=== PATIENT | male | born 1940 | race Caucasian/White ===

== ENCOUNTER 2019-08-09 09:47 | Inpatient (IN) | payer MEDICARE, SELFPAY ==
[2019-08-09] VITALS (10 sets, daily range): BP systolic 90–147; BP diastolic 72–104; PULSE 72–112; RESP 16–24; TEMP 36.1–36.6; O2SAT 96–98
--- NOTE | ~2019-08-09 | XR_ITS ---
EXAMINATION: XR chest 2V DATE: 08/10/2019 08:43 INDICATION: Shortness of breath. TECHNIQUE: Frontal and lateral views of the chest were obtained on 3 radiographs. COMPARISON: Chest 2 views 08/09/2019 FINDINGS: A calcified right lung nodule is consistent with old granulomatous disease. There is mild a telectasis at right lung base. No pleural effusion or pneumothorax. Cardiomegaly is noted. IMPRESSION: 1. Mild atelectasis at right lung base. 2. Cardiomegaly. Reviewed, dictated and finalized at location A. AND CAP DRYING ROOM ATTENDANT
--- NOTE | ~2019-08-09 | XR_ITS ---
EXAMINATION: XR chest 2V DATE: 08/09/2019 10:24 INDICATION: Shortness of breath. TECHNIQUE: Frontal and lateral views of the chest were obtained. COMPARISON: Chest single view 06/26/2016, CT abdomen 03/05/2018 FINDINGS: A calcified right lung nodule and calcified right hilar lymph nodes are consistent with old granulomatous disease. There are interstitial opacities in the lower lungs, consistent with mild pul monary edema. There are small pleural effusions. No pneumothorax. Cardiomegaly is noted. IMPRESSION: 1. Mild pulmonary edema. 2. Small pleural effusions. 3. Cardiomegaly. Reviewed, dictated and finalized at location A. S EXPERT
--- NOTE | 2019-08-09 09:51 | ECG_ITS ---
Measurements Intervals [place] Rate: 92 P: [place]: 0 QRS: -66 QRSD: 98 T: 83 QT: 379 QTc: 469 Interpretive Statements ATRIAL FIBRILLATION FREQUENT VENTRICULAR PREMATURE COMPLEXES LEFT AXIS DEVIATION ANTEROSEPTAL INFARCT, AGE INDETERMINATE BORDERLINE ST-T WAVE ABNORMALITY- LATERAL LEADS ABNORMAL ECG Electronically Signed On 08-09-2019 11:52:24 COATING SUPERVISOR by Roldan Corbett D.O.
--- NOTE | 2019-08-09 10:02 | ED.SOB ---
HPI - SOB/Dyspnea General Chief Complaint: Shortness of Breath/Dyspnea Stated Complaint: trouble breathing Time Seen by Provider: 08/09/19 10:02 Source: patient Mode of arrival: ambulatory Limitations: no limitations History of Present Illness MD elicited complaint: shortness of breath Pertinent past history: COPD Onset (ago): week(s) (2-3) Timing: intermittent Severity: moderate Exacerbating factors: lying flat Relieving factors: upright position Known history of: COPD Associated symptoms: orthopnea Treatment prior to arrival: none Related Data Home Medications Medication Instructions Recorded Confirmed apixaban [Eliquis] 5 mg PO BID 08/09/19 08/09/19 carvedilol 12.5 mg PO BID 08/09/19 08/09/19 digoxin 125 mcg PO DAILY 08/09/19 08/09/19 fluticasone propionate [Flonase 2 spray INTRANASAL DAILY 08/09/19 08/09/19 Allergy Relief] lisinopril 5 mg PO DAILY 08/09/19 08/09/19 Allergies Allergy/AdvReac Type Severity Reaction Status Date / Time Penicillins Allergy Unknown Verified 08/09/19 10:13 Review of Systems Constitutional: Constitutional: Denies chills and Denies fever(s) Cardiovascular: Cardiovascular: Reports chest pain and Reports rapid heart rate Respiratory: Respiratory: Denies cough Gastrointestinal: Gastrointestinal: Reports no additional gastrointestinal complaints Genitourinary: Genitourinary: Reports no additional male genitourinary complaints Integumentary/Breasts: Skin/Breast: Denies pruritus, Denies erythema and Denies rash Neurologic: Reports system reviewed and no additional complaints, except as documented Psychiatric: Psychiatric: Reports no additional psychiatric complaints Endocrine: Endocrine: Reports no additional endocrine complaints [facility] Past Medical History Medical History (Updated 08/09/19 @ 15:54 by DALILA Hernandez) Anxiety disorder Atrial fibrillation Congestive heart failure Thrombocytopenia Surgical History Surgical History (Updated 08/09/19 @ 13:18 by Jarocho Hannon MD) History of inguinal hernia repair S/P colonoscopic polypectomy Family History Family History (Updated 08/09/19 @ 14:20 by Janell Catalan RN) Father Unknown family medical history Mother Unknown family medical history Social History Social History (Updated 08/09/19 @ 13:19 by Jarocho Hannon MD) Years smoked: 40 Smoking status: Former smoker Tobacco type: pipe Smoking end date: 06/25/19 Alcohol intake: never Alcohol use details: Occasional Substance use: never Substance use type: does not use Gender identity (if verbalized by the patient): Male Spiritual care concerns: No Exam Const: General: healthy appearing, no acute distress and alert Nutritional Appearance: well nourished and thin Orientation/consciousness: patient oriented x3 HENMT: Head: normal to inspection Eyes: Conjunctivae: conjunctivae normal Pupils: Equal, round and reactive pupils present EOM: EOMs intact bilaterally Neck: Neck: normal visual inspection and no lymphadenopathy Resp: Effort & Inspection: normal respiratory effort Auscultation: clear to auscultation bilaterally Cardio: Rate: tachycardic Rhythm: abnormal rhythm irregularly irregular GI: GI Palp: Yes Soft to palpation and No Tenderness to palpation present (GI) Auscultation: normal bowel sounds Back/Spine/Pelvis: Cervical Spine: cervical ROM normal Thoracic/Lumbar Spine: thoraco-lumbar ROM normal Skin: General skin exam: normal color Rashes: no rashes Neuro: General: patient oriented x3, moves all extremities and no focal motor deficits Speech: normal speech Extrem: General: normal to inspection and no pedal edema Psych: Mental Status: mental status grossly normal Affect: normal affect Attitude: cooperative Thought content: Yes Normal thought content present Course Vital Signs Vital signs: Vital Signs Temperature 36.1 C L 08/09/19 10:00 Pulse Rate 112 H 08/09/19 10:00 Respir
[2019-08-09 10:33] LABS: Basophils Absolute Auto 0.03 K/mm3 (0.00-0.10); Basophils Percent Auto 0.6 % (0.0-1.0); Eosinophils Absolute Auto 0.04 K/mm3 (0.02-0.50); Eosinophils Percent Auto 0.8 % (1.0-6.0); Hematocrit 42.9 % (37.0-46.0); Hemoglobin 15.1 g/dL (12.4-15.3); Immature Granulocyte Absolute 0.02 K/mm3 (0.00-0.00); Immature Granulocyte Percent A 0.4 % (0.0-0.0); Lymphocytes Absolute Auto 1.26 K/mm3 (1.10-4.50); Lymphocytes Percent Auto 26.5 % (18.0-42.0); Mean Corpuscular HGB Conc 35.2 g/dL (32.0-36.0); Mean Corpuscular Hemoglobin 32.8 pg (27.0-31.0); Mean Corpuscular Volume 93.3 fL (78.0-102.0); Mean Platelet Volume 10.5 fl (8.7-11.0); Monocytes Absolute Auto 0.54 K/mm3 (0.10-0.90); Monocytes Percent Auto 11.4 % (2.0-11.0); Neutrophils Absolute Auto 2.9 K/mm3 (1.7-7.2); Neutrophils Percent Auto 60.3 % (50.0-70.0); Platelet Count Result 129 K/mm3 (150-420); Red Cell Distribution Width 15.4 % (11.6-14.4); White Blood Count 4.8 K/mm3 (4.8-10.8)
[2019-08-09 10:50] LABS: BNP 1300 pg/mL (0-100)
[2019-08-09 10:55] LABS: CRP 0.8 mg/dL (0.0-0.9); Digoxin < 0.2 ng/mL (0.9-2.0); Troponin I 0.04 ng/mL (0.00-0.056)
--- NOTE | 2019-08-09 11:00 | PC.NURSE ---
PT CARE IS ASSUMED AT THIS TIME. PT REPORTS BEING COMFORTABLE AT THIS TIME BUT WISHES TO SPEND THE NIGHT. A-FIB FOUND ON MONITOR.
[2019-08-09 11:01] LABS: Alanine Aminotransferase 19 U/L (16-63); Albumin Level 3.8 g/dL (3.4-5.0); Anion Gap 15.6 mmol/L (7-16); Aspartate Amino Transferase 25 U/L (15-37); Bilirubin,Total 2.7 mg/dL (0.00-1.00); Blood Urea Nitrogen 24 mg/dL (7-18); Calcium 9.4 mg/dL (8.5-10.1); Carbon Dioxide 27 mmol/L (21-32); Chloride 103 mmol/L (98-108); Estimated CRCL calculation 42 ml/min; Estimated Glomerular Filt Rate 58; Glucose 119 mg/dL (70-99); Osmolality Calculated 297 mOsm/kg (285-295); Potassium 4.6 mmol/L (3.5-5.1); Sodium 141 mmol/L (136-145); Total Protein 7.1 g/dL (6.4-8.2)
[2019-08-09 11:13] LABS: Alkaline Phosphatase 89 U/L (46-116); Magnesium 1.9 mg/dL (1.8-2.4)
--- NOTE | 2019-08-09 14:22 | PC.NURSE ---
here from er with c/o sob. bnp elevated. claims he feels better but now just wore out since we gave him lasix in er. lungs are slightly diminished but clear. no pedal edema. skin warm and dry. in room 210 and is on tele with a fib and rates of 90-110's. a&o x's 3. call light use explained and impotance of measuring urine.
--- NOTE | 2019-08-09 15:41 | PM.IMHP ---
H&P: HPI History of Present Illness Chief complaint: trouble breathing <DALILA Hernandez - Last Filed: 08/09/19 15:56> Narrative: Vazquez Higgins is a 79 year old male male that presented to the ER today complaining of shortness of breath dyspnea. Patient has a past medical history anxiety disorder, AFib, thrombocytopenia and congestive heart failure . he is being admitted for congestive heart failure patient's vital signs are 147/104, 98, 20, 36.4, 97% air. patient noted that about 2 weeks ago he started to experience shortness of breath and discomfort in his chest per patient it felt like lines was running up and down my chest . He noted that it did not feel like heart attack but more of a discomfort. He also noted that he was fatigue and slept a lot. He did note that he had an occasional. Last night he was unable to sleep and felt more discomfort in his chest and decided to come into the ED. Patient's manager group home is Dr. Herron. I did contact , for any suggestions. while patient was in the ER he had a chest x-ray which indicated mild pulmonary edema with small pleural effusion. His BNP was 1300 he was given Lasix IV push. He continues to have shortness of breath on occasions chest discomfort. Patient denies , CP, palpitation, extremity numbness, lightheadness, dizziness, constipation, diarrhea, or chills or fever. <DALILA Hernandez - Last Filed: 08/09/19 15:56> Review of Systems Constitutional: Constitutional: Reports fatigue, Denies headache(s) and Reports weakness <DALILA Hernandez - Last Filed: 08/09/19 15:56> Cardiovascular: Cardiovascular: Reports palpitations and Reports dyspnea <DALILA Hernandez - Last Filed: 08/09/19 15:56> [facility] Past Medical History Medical History: Medical History (Updated 08/09/19 @ 15:54 by DALILA Hernandez) Anxiety disorder Atrial fibrillation Congestive heart failure Thrombocytopenia <DALILA Hernandez - Last Filed: 08/09/19 15:56> Surgical History Surgical History: Surgical History (Updated 08/09/19 @ 13:18 by Jarocho Hannon MD) History of inguinal hernia repair S/P colonoscopic polypectomy <DALILA Hernandez - Last Filed: 08/09/19 15:56> Family History Family History: Family History (Updated 08/09/19 @ 14:20 by Janell Catalan RN) Father Unknown family medical history Mother Unknown family medical history <DALILA Hernandez - Last Filed: 08/09/19 15:56> Social History Social History: Social History (Updated 08/09/19 @ 13:19 by Jarocho Hannon MD) Years smoked: 40 Smoking status: Former smoker Tobacco type: pipe Smoking end date: 06/25/19 Alcohol intake: never Alcohol use details: Occasional Substance use: never Substance use type: does not use Gender identity (if verbalized by the patient): Male Spiritual care concerns: No <DALILA Hernandez - Last Filed: 08/09/19 15:56> Meds Home Medications and Allergies Home medications: Home Medications Medication Instructions Recorded Confirmed Type apixaban [Eliquis] 5 mg PO BID 08/09/19 08/09/19 History carvedilol 12.5 mg PO BID 08/09/19 08/09/19 History digoxin 125 mcg PO DAILY 08/09/19 08/09/19 History fluticasone propionate [Flonase 2 spray INTRANASAL DAILY 08/09/19 08/09/19 History Allergy Relief] lisinopril 5 mg PO DAILY 08/09/19 08/09/19 History <DALILA Hernandez - Last Filed: 08/09/19 15:56> Allergies/Adverse reactions: Allergies Allergy/AdvReac Type Severity Reaction Status Date / Time Penicillins Allergy Unknown Verified 08/09/19 10:13 <DALILA Hernandez - Last Filed: 08/09/19 15:56> Vital Signs Vital Signs - 24 hr 08/09/19 10:00 08/09/19 10:12 08/09/19 10:41 Temperature 36.1 C L Pulse Rate 112 H 112 H 100 Respiratory Rate 16 16 Blood Pressure 127/83 138/84 Pulse Oximetry 96 97 08/09/19 11:55 08/09/19
[2019-08-09] MEDS: FUROSEMIDE INJ 40 MG/4 ML VIAL IV PUSH (16:50)
[2019-08-09] MEDS: APIXABAN 2.5 MG TABLET 5 MG PO (20:32)
[2019-08-09] MEDS: carvediloL 12.5 MG TABLET PO (20:33)
[2019-08-09] MEDS: DOCUSATE SODIUM 100 MG CAPSULE PO (20:33)
--- NOTE | 2019-08-09 21:37 | PC.NURSE ---
Dr Hannon notifed of 3 runs of V-tach at 21:20 a 9 beat, 8beat, and 10 beat run. No new orders obtained. will continue to monitor.
--- NOTE | 2019-08-09 23:00 | PC.NURSE ---
pt reports he has had 2 bipin horses in left leg. Charge nurse notified
[2019-08-10] VITALS (9 sets, daily range): BP systolic 90–113; BP diastolic 51–84; PULSE 70–92; RESP 16–20; TEMP 36.1–36.7; O2SAT 96–99
[2019-08-10 05:46] LABS: Basophils Absolute Auto 0.02 K/mm3 (0.00-0.10); Basophils Percent Auto 0.4 % (0.0-1.0); Eosinophils Absolute Auto 0.04 K/mm3 (0.02-0.50); Eosinophils Percent Auto 0.8 % (1.0-6.0); Immature Granulocyte Absolute 0.02 K/mm3 (0.00-0.00); Immature Granulocyte Percent A 0.4 % (0.0-0.0); Immature Platelet Fraction Pct 3.2 % (1.0-7.0); Lymphocytes Absolute Auto 1.42 K/mm3 (1.10-4.50); Lymphocytes Percent Auto 29.5 % (18.0-42.0); Mean Corpuscular HGB Conc 35.7 g/dL (32.0-36.0); Mean Corpuscular Hemoglobin 32.3 pg (27.0-31.0); Mean Corpuscular Volume 90.3 fL (78.0-102.0); Mean Platelet Volume 9.9 fl (8.7-11.0); Monocytes Absolute Auto 0.61 K/mm3 (0.10-0.90); Monocytes Percent Auto 12.7 % (2.0-11.0); Neutrophils Absolute Auto 2.7 K/mm3 (1.7-7.2); Neutrophils Percent Auto 56.2 % (50.0-70.0); Platelet Count Result 132 K/mm3 (150-420); Red Blood Count 4.65 M/mm3 (4.70-6.10); Red Cell Distribution Width 14.7 % (11.6-14.4); White Blood Count 4.8 K/mm3 (4.8-10.8)
[2019-08-10 05:59] LABS: Anion Gap 14.3 mmol/L (7-16); Blood Urea Nitrogen 23 mg/dL (7-18); Calcium 9.2 mg/dL (8.5-10.1); Carbon Dioxide 29 mmol/L (21-32); Chloride 100 mmol/L (98-108); Estimated CRCL calculation 39 ml/min; Estimated Glomerular Filt Rate 53; Glucose 108 mg/dL (70-99); Osmolality Calculated 294 mOsm/kg (285-295); Potassium 3.3 mmol/L (3.5-5.1); Sodium 140 mmol/L (136-145)
[2019-08-10 06:09] LABS: BNP 1080 pg/mL (0-100)
--- NOTE | 2019-08-10 08:33 | PC.NURSE ---
Sat up on edge of bed for breakfast, feeling better, denies needs, no SOB this am, no cough noted
[2019-08-10] MEDS: FLUTICASONE PROPIONATE 0.05% NA SPR 16 GM BTL (*BKC) 2 SPRAY NASAL (09:33)
[2019-08-10] MEDS: POTASSIUM CHLORIDE 20 MEQ TABLET 40 MEQ PO (09:35)
[2019-08-10] MEDS: DOCUSATE SODIUM 100 MG CAPSULE PO (09:35)
[2019-08-10] MEDS: DIGOXIN TAB 125 MCG TABLET PO (09:36)
[2019-08-10] MEDS: carvediloL 12.5 MG TABLET PO ×2 (09:36→21:03)
[2019-08-10] MEDS: APIXABAN 2.5 MG TABLET 5 MG PO ×2 (09:36→21:03)
[2019-08-10] MEDS: lisinopriL 5 MG TABLET PO (09:38)
--- NOTE | 2019-08-10 09:40 | PC.NURSE ---
refuses lasix this am
--- NOTE | 2019-08-10 10:30 | PC.NURSE ---
REsting with eyes closed, respirations non labored, telemetry afib, no distress noted
--- NOTE | 2019-08-10 11:30 | PC.NURSE ---
Agreeable to take oral lasix, once daily
[2019-08-10] MEDS: FUROSEMIDE 40 MG TABLET PO (12:07)
[2019-08-10 12:18] LABS: Troponin I 0.08 ng/mL (0.00-0.056)
--- NOTE | 2019-08-10 12:52 | PC.NURSE ---
ate well for lunch, denies sob,
--- NOTE | 2019-08-10 13:21 | PM.IMPN ---
Progress Note: A&P Assessment and Plan (1) Congestive heart failure: Qualifiers: Heart failure chronicity: acute Heart failure type: systolic Qualified Code(s): I50.21 - Acute systolic (congestive) heart failure Code(s): I50.9 - Heart failure, unspecified Status: Acute Assessment and Plan: uncompensated patient with a history of systolic congestive heart failure on admission BNP 1300, currently 10 80 repeat BMP in a.m. change Lasix to 40 mg daily in the a.m.. patient complaining of not being able to sleep due to constant urination spoke with Dr. Herron recommended that the patient discharged with 40 mg of Lasix daily he would like for the patient to call his office to schedule for a follow-up appointment when he is in stock continue weight daily continue oxygen supplement (2) Anxiety disorder: Code(s): F41.9 - Anxiety disorder, unspecified Status: Acute Assessment and Plan: Ativan p.r.n. ordered (3) Atrial fibrillation: Code(s): I48.91 - Unspecified atrial fibrillation Status: Acute Assessment and Plan: patient with controlled AFib, heat rate 92 continue carvedilol, digoxin, Eliquis and lisinopril continue telemetry digoxin not therapeutic possibly due to noncompliance (4) DVT prophylaxis: Code(s): Z29.9 - Encounter for prophylactic measures, unspecified Status: Acute Assessment and Plan: patient on Eliquis for AFib (5) Encounter for monitoring digoxin therapy: Code(s): Z51.81 - Encounter for therapeutic drug level monitoring; Z79.899 - Other group home (current) drug therapy Status: Acute Assessment and Plan: patient digoxin level less than 0.2 informed patient cardiology. possibly due to noncompliance. cardiologists instructed patient to make appointment on discharge. (6) Elevated troponin: Code(s): R79.89 - Other specified abnormal findings of blood chemistry Status: Acute Assessment and Plan: troponin level slightly elevated today will repeat in 6 hours continue telemetry patient does not display any signs of [place] Subjective Date/time seen: 08/10/19 13:21 patient's condition has improved since admission he had no complains of shortness of breath. Patient refused Lasix this morning. Spoke with patient concerning congestive heart failure and treatment plan this condition. Inform him that Lasix will improved his condition. Patient agreed to take a pill form of Lasix once a day in the a.m. troponin was slightly elevated results were 0.08. Will continue telemetry and monitor patient. Patient able to tolerate all meals , and ambulate at baseline. Patient denies SOB, CP, palpitation, extremity numbness, lightheadness, dizziness, constipation, diarrhea, or chills or fever. Review of Systems Constitutional: Constitutional: Reports fatigue, Denies headache(s) and Reports weakness ENT: Denies headache(s) Cardiovascular: Cardiovascular: Reports palpitations and Reports dyspnea Respiratory: Respiratory: Reports dyspnea Neurologic: Denies headache(s) and Reports weakness Endocrine: Endocrine: Reports fatigue and Reports palpitations Exam Narrative: Exam Narrative: General: A well-developed, well-nourished male sitting up in bed no acute distress. HEENT: Normocephalic, atraumatic. PERRL, EOMI. Sclerae anicteric. Oral mucosa moist. Oropharynx clear. Neck: Supple. Respiratory: Lungs are clear to auscultation bilaterally. Cardiovascular: Regular rate and rhythm with S1-S2. Gastrointestinal: Abdomen is soft, nontender, and nondistended with positive bowel sounds. No organomegaly. Skin: Warm, dry, and slightly pale.. No rash or lesions on limited exam. Extremities: No cyanosis, clubbing, or edema. Radial and pedal pulses intact. Neurological: Alert. Cranial nerves 2-12 are grossly intact. No gross focal deficits to casual conversation. Psychiatric: Ple
--- NOTE | 2019-08-10 13:30 | PC.NURSE ---
napping, no needs noted, telemetry afib 70's, no distress noted
--- NOTE | 2019-08-10 16:45 | PC.NURSE ---
up independent in room uses bathroom as needed, not using urinal
[2019-08-10 18:12] LABS: Troponin I 0.05 ng/mL (0.00-0.056)
--- NOTE | 2019-08-10 18:26 | PC.NURSE ---
No needs voiced, resting well, denies sob, telemetry afib
--- NOTE | 2019-08-10 23:28 | PM.EVENT ---
Event Note Event Note Event Note: Patient states that he is feeling much better today and is asking about going home. Alert and oriented x3.Lungs clear to auscultation bilaterally. No respiratory distress. Irregularly irregular but normal rate. Scant pitting edema at the lower extremities which are warm dry and pink There is no evidence of cardiac injury. BNP is improved today. Home on oral Lasix, reinforcing the need to continue to take his digoxin. I have reviewed the chart and examined the patient. I discussed the patient's care with Elyssa Ferrari APN and agree with her assessment and plan.
[2019-08-11] VITALS: BP 113/65; PULSE 95; RESP 20; TEMP 36.7; O2SAT 95
--- NOTE | 2019-08-11 02:27 | PC.NURSE ---
pt given fresh ice water, denies any pain or other needs at this time.
[2019-08-11 04:00] VITALS: BP 99/55; PULSE 76; PULSE 83; RESP 20; TEMP 36.4; O2SAT 98
[2019-08-11 06:16] LABS: Hematocrit 43.1 % (37.0-46.0); Hemoglobin 15.3 g/dL (12.4-15.3); Mean Corpuscular HGB Conc 35.5 g/dL (32.0-36.0); Mean Corpuscular Hemoglobin 32.2 pg (27.0-31.0); Mean Corpuscular Volume 90.7 fL (78.0-102.0); Mean Platelet Volume 10.2 fl (8.7-11.0); Platelet Count Result 130 K/mm3 (150-420); Red Blood Count 4.75 M/mm3 (4.70-6.10); Red Cell Distribution Width 14.6 % (11.6-14.4); White Blood Count 5.1 K/mm3 (4.8-10.8)
[2019-08-11 06:18] LABS: Anion Gap 12.7 mmol/L (7-16); Blood Urea Nitrogen 24 mg/dL (7-18); Calcium 9.2 mg/dL (8.5-10.1); Carbon Dioxide 30 mmol/L (21-32); Chloride 99 mmol/L (98-108); Estimated CRCL calculation 42 ml/min; Estimated Glomerular Filt Rate 58; Glucose 90 mg/dL (70-99); Osmolality Calculated 290 mOsm/kg (285-295); Potassium 3.7 mmol/L (3.5-5.1); Sodium 138 mmol/L (136-145)
[2019-08-11 06:39] LABS: BNP 614 pg/mL (0-100)
[2019-08-11 06:40] LABS: Digoxin < 0.2 ng/mL (0.9-2.0); Troponin I 0.05 ng/mL (0.00-0.056)
[2019-08-11 08:00] VITALS: BP 108/59; PULSE 94; RESP 18; TEMP 36.1; O2SAT 98
--- NOTE | 2019-08-11 09:30 | PC.NURSE ---
AM meds given, denies sob, no pain, telemetry afib
[2019-08-11] MEDS: FLUTICASONE PROPIONATE 0.05% NA SPR 16 GM BTL (*BKC) 2 SPRAY NASAL (09:34)
[2019-08-11 09:35] VITALS: PULSE 84
[2019-08-11] MEDS: DOCUSATE SODIUM 100 MG CAPSULE PO (09:35)
[2019-08-11] MEDS: carvediloL 12.5 MG TABLET PO (09:35)
[2019-08-11 09:36] VITALS: PULSE 84
[2019-08-11] MEDS: FUROSEMIDE 40 MG TABLET PO (09:36)
[2019-08-11] MEDS: DIGOXIN TAB 125 MCG TABLET PO (09:36)
[2019-08-11] MEDS: APIXABAN 2.5 MG TABLET 5 MG PO (09:36)
[2019-08-11] MEDS: POTASSIUM CHLORIDE 20 MEQ TABLET 40 MEQ PO (09:37)
[2019-08-11] MEDS: lisinopriL 5 MG TABLET PO (09:38)
--- NOTE | 2019-08-11 11:30 | PC.NURSE ---
Resting in bed, no distress noted
[2019-08-11 12:00] VITALS: PULSE 88; PULSE 98; RESP 18
--- NOTE | 2019-08-11 13:38 | PM.DS ---
DS: Diagnosis Admitting Diagnosis Admitting Diagnosis: Acute systolic (congestive) heart failure <DALILA Hernandez - Last Filed: 08/11/19 16:26> Discharge Diagnosis (1) Congestive heart failure: Qualifiers: Heart failure chronicity: acute Heart failure type: systolic Qualified Code(s): I50.21 - Acute systolic (congestive) heart failure <DALILA Hernandez - Last Filed: 08/11/19 16:26> Code(s): I50.9 - Heart failure, unspecified <DALILA Hernandez - Last Filed: 08/11/19 16:26> Status: Acute <DALILA Hernandez - Last Filed: 08/11/19 16:26> Assessment and Plan: uncompensated patient with a history of systolic congestive heart failure on admission BNP 1300, on discharge 614. patient discharged with Lasix in follow-up with his cook fish and chips spoke with Dr. Herron recommended that the patient discharged with 40 mg of Lasix daily he would like for the patient to call his office to schedule for a follow-up appointment when he is in stock patient educated on congestive heart failure and the importance of a diuretic <DALILA Hernandez - Last Filed: 08/11/19 16:26> (2) Anxiety disorder: Code(s): F41.9 - Anxiety disorder, unspecified <DALILA Hernandez - Last Filed: 08/11/19 16:26> Status: Acute <DALILA Hernandez - Last Filed: 08/11/19 16:26> Assessment and Plan: stable no Ativan needed this stay <DALILA Hernandez - Last Filed: 08/11/19 16:26> (3) Atrial fibrillation: Code(s): I48.91 - Unspecified atrial fibrillation <DALILA Hernandez - Last Filed: 08/11/19 16:26> Status: Acute <DALILA Hernandez - Last Filed: 08/11/19 16:26> Assessment and Plan: patient with controlled AFib, continue carvedilol, digoxin, Eliquis and lisinopril patient restarted on digoxin digoxin not therapeutic due to the patient discontinuing medication <Lachelle MccabeOrquidea Vega DALILA - Last Filed: 08/11/19 16:26> (4) DVT prophylaxis: Code(s): Z29.9 - Encounter for prophylactic measures, unspecified <Lachelle Ferrari CARPET JACKKristianPramod - Last Filed: 08/11/19 16:26> Status: Acute <Lachelle Ferrari CARPET JACK-C - Last Filed: 08/11/19 16:26> Assessment and Plan: patient on Eliquis for AFib <Lachelle Ferrari CARPET JACKKristianPramod - Last Filed: 08/11/19 16:26> (5) Encounter for monitoring digoxin therapy: Code(s): Z51.81 - Encounter for therapeutic drug level monitoring; Z79.899 - Other dedicated intermodal truck driver (current) drug therapy <Lachelle Ferrari RICKPramod - Last Filed: 08/11/19 16:26> Status: Acute <Lachelle Ferrari DALILA - Last Filed: 08/11/19 16:26> Assessment and Plan: patient digoxin level less than 0.2 informed patient cardiology. due to patient discontinuing medication prescribed new prescription. instructed to continue taking medication until he has an appointment with his cook fish and chips <Lachelle MccabeOrquidea Ferrari CARPET JACK-C - Last Filed: 08/11/19 16:26> (6) Elevated troponin: Code(s): R79.89 - Other specified abnormal findings of blood chemistry <Lachelle MccabeOrquidea Ferrari CARPET JACK-C - Last Filed: 08/11/19 16:26> Status: Acute <Lachelle Ferrari DALILA - Last Filed: 08/11/19 16:26> Assessment and Plan: troponin level slightly elevated , trended down this hospital stay patient does not display any signs of [place] <Lachelle MccabeOrquidea Ferrari CARPET JACKGiselle - Last Filed: 08/11/19 16:26> DS: Summary Hospital Course Hospital Course: admission H&P from 08/09/2018: Vazquez Higgins is a 79 year old male male that presented to the ER today complaining of shortness of breath dyspnea. Patient has a past medical history anxiety disorder, AFib, thrombocytopenia and congestive heart failure . he is being admitted for congestive heart failure patient's vital signs are 147/104, 98, 20, 36.4, 97% air. patient noted that about 2 weeks ago he started to ex
--- NOTE | 2019-08-11 14:08 | PC.NURSE ---
saline lock and telemetry discontinued, tolerated well, up ad ramon in room has to call for ride home, no distress noted
--- NOTE | 2019-08-11 14:53 | PC.NURSE ---
Discharge instructions reviewed with patient, no questions or concerns voiced
--- NOTE | 2019-08-11 15:05 | PC.NURSE ---
Discharge via wheel chair, discharge instructions and personal items sent with patient, no questions or concerns
--- NOTE | 2019-08-12 07:37 | P.PNCROSS_ITS ---
Event Note Event Note Event Note: Note written for encounter on 08/11/2019 For this patient encounter, I reviewed vinicio Ferrari BITUMINOUS PAVING MACHINE OPERATOR's documentation, treatment plan, and medical decision making; and I had [id number] time with this patient. Bibasilar rales on exam. Pt encouraged to be complaint with taking lasix.
--- NOTE | 2019-08-12 07:37 | PM.EVENT ---
Event Note Event Note Event Note: Note written for encounter on 08/11/2019 For this patient encounter, I reviewed vinicio Ferrari TIPPLE REPAIRER's documentation, treatment plan, and medical decision making; and I had [id number] time with this patient. Bibasilar rales on exam. Pt encouraged to be complaint with taking lasix.
--- NOTE | 2019-08-14 14:31 | PC.NURSE ---
Discharge call back unable to reach patient.
== END 2019-08-11 15:05 | disposition home or self-care (01) | DRG 292 ==
LOC: CHSED 12:32 → CHS2ND 13:21
PROVIDERS: Nurse Practitioner; Admitting Provider Emergency Medicine; Emergency Provider Emergency Medicine; PCP Family Medicine; Visit Provider Emergency Medicine
DX: I50.23 Acute on chronic systolic (congestive) heart failure (principal); I48.20 Chronic atrial fibrillation, unspecified; J44.9 Chronic obstructive pulmonary disease, unspecified; D69.6 Thrombocytopenia, unspecified; F41.9 Anxiety disorder, unspecified; Z79.01 Long term (current) use of anticoagulants
CPT/HCPCS: 36415; 71046; 80048; 80053; 80162; 83735; 83880; 84484; 85025; 85027; 85055; 86140; 93005; 99284; 99285; A9270; J1940

== ENCOUNTER 2019-08-22 11:59 | Outpatient (CLI) | payer MEDICARE, SELFPAY | END 2019-08-22 12:00 | disposition home or self-care (01) | LOC: CHSIMG 12:01 | PROVIDERS: PCP Family Medicine; Visit Provider Specialist | DX: I42.9 Cardiomyopathy, unspecified (principal); Q25.49 Other congenital malformations of aorta | CPT/HCPCS: 93306 ==

== ENCOUNTER 2019-08-30 15:56 | Outpatient (CLI) | payer MEDICARE, SELFPAY ==
--- NOTE | ~2019-08-30 | XR_ITS ---
EXAMINATION: XR chest 2V DATE: 08/30/2019 16:14 INDICATION: One week of shortness of breath TECHNIQUE: PA and lateral views of the chest were obtained. COMPARISON: Chest radiograph dated 08/10/2019 FINDINGS: Upper expansion of the lungs with flattening of the diaphragm suggestive but not diagnostic of COPD. Linear opacities at the bilateral lower lung zones consistent with atelectasis/scarring. Calcified no dule at the right costophrenic angle consistent with old granulomatous disease. New opacities at the posterior lung bases which could represent atelectasis and/or pneumonia. There is also new blunting a t the posterior sulci consistent with small bilateral pleural effusions. Cardiomegaly. Coronary arter y stenting. Mild thoracic spondylosis. IMPRESSION: 1. Tiny bilateral pleural effusions with posterior basilar opacities which could represent atelectasi s and/or pneumonia. 2. Cardiomegaly. 2. Hyperexpansion of the lungs suggestive but not diagnostic of COPD. Reviewed, dictated and finalized at location A. IMPRESSION: 1. Tiny bilateral pleural effusions with posterior basilar opacities which coul d represent atelectasis and/or pneumonia. 2. Cardiomegaly. 2. Hyperexpansion of the lungs suggestive but not diagnostic of COPD.
== END 2019-08-30 15:57 | disposition home or self-care (01) ==
LOC: CHSIMG 15:58
PROVIDERS: PCP Family Medicine; Visit Provider Family Medicine
DX: R06.00 Dyspnea, unspecified (principal)
CPT/HCPCS: 71046

== ENCOUNTER 2019-09-03 21:00 | Observation (INO) | payer MEDICARE, SELFPAY ==
--- NOTE | ~2019-09-03 | CT_ITS ---
EXAMINATION: CT brain wo con DATE: 09/03/2019 23:31 INDICATION: Confusion. TECHNIQUE: Computed tomography (CT) of the head was performed without intravenous contrast. The mA wa s adjusted according to patient size. Iterative reconstruction technique was employed. The dose-lengt h product was 605.33 mGy-cm. COMPARISON: None FINDINGS: There are scattered areas of low attenuation in the cerebral white matter, which is within normal limits for the patient's age. There is an old lacunar infarct in the left basal ganglia. There is no intracranial hemorrhage, acute infarction, or abnormal intracranial mass lesion. The ventricle s are normal in size. The orbits are normal. There is mild mucosal thickening in the ethmoid sinuses. The mastoid air cells are normal. IMPRESSION: 1. Old lacunar infarct in the left basal ganglia. Reviewed, dictated and finalized at location A.
--- NOTE | ~2019-09-03 | XR_ITS ---
EXAMINATION: XR chest 1V portable DATE: 09/03/2019 22:32 INDICATION: Confusion. TECHNIQUE: A single frontal view of the chest was obtained. COMPARISON: Chest 2 views 08/30/2019, CT abdomen and pelvis 03/05/2018 FINDINGS: The lungs are hyperexpanded, consistent with chronic obstructive pulmonary disease. Calcifi ed pulmonary nodules are consistent with old granulomatous disease. No pleural effusion or pneumothor ax. Cardiomegaly is noted. A skin fold overlies right chest. IMPRESSION: 1. Hyperexpanded lungs, consistent with chronic obstructive pulmonary disease. 2. Cardiomegaly. Reviewed, dictated and finalized at location A.
[2019-09-03 21:17] VITALS: BP 134/76; PULSE 114; RESP 18; TEMP 36.1; O2SAT 97
--- NOTE | 2019-09-03 22:16 | ECG_ITS ---
Measurements Intervals [place] Rate: 86 P: [place]: 0 QRS: -70 QRSD: 96 T: 95 QT: 366 QTc: 440 Interpretive Statements ATRIAL FIBRILLATION LEFT AXIS DEVIATION VOLTAGE CRITERIA FOR LVH ANTEROSEPTAL INFARCT, AGE INDETERMINATE BORDERLINE ST-T WAVE ABNORMALITY- LATERAL LEADS BASELINE WANDER- V2-V3 ABNORMAL ECG Electronically Signed On 09-04-2019 7:14:08 CDT by Roldan Corbett D.O.
--- NOTE | 2019-09-03 22:19 | ED.GENADULT ---
HPI - General Adult General Chief complaint: Altered Mental Status Stated complaint: confused Source: patient Mode of arrival: ambulatory Limitations: no limitations History of Present Illness HPI narrative: 79 y.o. with RICH, a.fib, thrombocytopenia, and CHF c/o one week of not hitting on all cylinders...not on track...disilllusioned . Pt feels like he's not thinking straight. Feeling this way, he stayed in bed all day today. He doesn't feel like he's having trouble remembering things. Nothing seems to make it worse. He's not sure if it has gotten worse over time or not. He hasn't felt this way before. No hx of falls or head contusion. Pt has had minor dyspnea over the week. He was d.c. from [facility] 08/10 with acute systolic heart failure. He denies headache, visual disturbances, lightheadedness, vertigo, trouble with speech, weakness, numbness, trouble with balance. He has had no change of appetite. He doesn't feel his energy is substantially reduced. No fever. Related Data Home Medications Medication Instructions Recorded Confirmed Eliquis 5 mg PO BID 08/09/19 09/03/19 carvedilol 12.5 mg PO BID 08/09/19 09/03/19 fluticasone propionate [Flonase 2 spray INTRANASAL DAILY 08/09/19 09/03/19 Allergy Relief] lisinopril 5 mg PO DAILY 08/09/19 09/03/19 Allergies Allergy/AdvReac Type Severity Reaction Status Date / Time Penicillins Allergy Unknown Verified 08/09/19 10:13 Review of Systems Constitutional: Constitutional: Reports no additional constitutional complaints Eyes: Eyes: Reports no additional eye complaints ENT: Denies dysphagia, Denies nasal congestion and Denies sore throat Cardiovascular: Cardiovascular: Denies chest pain and Denies radiating jaw, neck or arm pain Comments: No polyuria or orthopnea No pedal edema Respiratory: Respiratory: Reports no additional respiratory complaints, Denies cough and Denies wheezing Gastrointestinal: Gastrointestinal: Denies abdominal pain, Denies diarrhea, Denies nausea and Denies vomiting Genitourinary: Genitourinary: Denies dysuria Musculoskeletal: Musculoskeletal: Denies myalgias and Denies arthralgias Integumentary/Breasts: Skin/Breast: Denies rash Psychiatric: Psychiatric: Denies anxiety and Denies depression Endocrine: Endocrine: Denies polyuria Hematologic/Lymphatic: Hematologic/Lymphatic: Denies easy bleeding PMFSH Past Medical History Medical History Anxiety disorder Atrial fibrillation Congestive heart failure Thrombocytopenia Surgical History Surgical History History of inguinal hernia repair S/P colonoscopic polypectomy Family History Family History (Updated 09/04/19 @ 00:29 by Jose Suresh MD) Father Alzheimer disease Mother Unknown family medical history Social History Social History Years smoked: 40 Smoking status: Current every day smoker Tobacco type: pipe Smokeless tobacco user: chewing tobacco Second hand tobacco smoke exposure: Yes Smoking end date: 06/25/19 Alcohol intake: never Substance use: never Substance use type: does not use Gender identity (if verbalized by the patient): Male Spiritual care concerns: No Agree to blood products: Yes Exam Const: General: no acute distress and alert Orientation/consciousness: patient oriented x3 Limitations: No physical limitations HENMT: Head: normal to inspection and no hematomas Face and sinus: no sinus tenderness Mouth: Yes moist mucous membranes Eyes: Conjunctivae: conjunctivae normal Neck: Neck: no lymphadenopathy Resp: Effort & Inspection: not labored and no use of accessory muscles Auscultation: clear to auscultation bilaterally, no rales and no wheezes Cardio: Jugular venous distension: JVD elevated (30 degrees) Rhythm: abnormal rhythm irregularly irregular Heart sounds: Murmur
[2019-09-03 22:39] LABS: Hematocrit 41.1 % (37.0-46.0); Hemoglobin 14.3 g/dL (12.4-15.3); Immature Platelet Fraction Pct 2.6 % (1.0-7.0); Mean Corpuscular HGB Conc 34.8 g/dL (32.0-36.0); Mean Corpuscular Hemoglobin 32.6 pg (27.0-31.0); Mean Corpuscular Volume 93.6 fL (78.0-102.0); Mean Platelet Volume 9.7 fl (8.7-11.0); Platelet Count Result 140 K/mm3 (150-420); Red Blood Count 4.39 M/mm3 (4.70-6.10); Red Cell Distribution Width 15.3 % (11.6-14.4)
[2019-09-03 23:03] LABS: Add Urine Microscopic? YES; Appearance Urine Clear (Clear); Bilirubin Urine 1+ (Negative); Blood Urine Negative (Negative); Color Urine Yellow (Yellow); Glucose Urine UA Negative (Negative); Ketones Urine Negative (Negative); Leukocyte Esterase Ur Negative (Negative); Nitrate Urine Negative (Negative); Protein Urine 2+ (Negative); Specific Grav Ur >= 1.030 (1.010-1.020); pH Urine 5.5 (5.0-8.0)
[2019-09-03 23:04] LABS: Alanine Aminotransferase 29 U/L (16-63); Albumin Level 3.5 g/dL (3.4-5.0); Alkaline Phosphatase 90 U/L (46-116); Anion Gap 13.7 mmol/L (7-16); Aspartate Amino Transferase 35 U/L (15-37); Bilirubin,Total 1.5 mg/dL (0.00-1.00); Blood Urea Nitrogen 24 mg/dL (7-18); Calcium 8.9 mg/dL (8.5-10.1); Carbon Dioxide 28 mmol/L (21-32); Chloride 104 mmol/L (98-108); Estimated CRCL calculation 35 ml/min; Estimated Glomerular Filt Rate 51; Glucose 70 mg/dL (70-99); Osmolality Calculated 296 mOsm/kg (285-295); Potassium 3.7 mmol/L (3.5-5.1); Sodium 142 mmol/L (136-145); Total Protein 6.5 g/dL (6.4-8.2)
[2019-09-03 23:05] VITALS: BP 127/73; PULSE 78; RESP 18; O2SAT 96
[2019-09-03 23:05] LABS: Magnesium 1.8 mg/dL (1.8-2.4); Troponin I 0.05 ng/mL (0.00-0.056)
--- NOTE | 2019-09-03 23:06 | PC.NURSE ---
report to quinn quintero
[2019-09-03 23:22] LABS: RBC Urine 0-2 /hpf (0-2); Squamous Epithelial Cell Urine None seen /hpf (Few); WBC Urine 0-3 /hpf (0-3)
[2019-09-03 23:23] LABS: Bacteria Urine 1+ /hpf; Mucus Urine Few /lpf; Starch Ur Present /hpf
[2019-09-03 23:31] LABS: Digoxin 0.8 ng/mL (0.9-2.0)
[2019-09-03 23:36] VITALS: BP 114/78; PULSE 85; RESP 18
[2019-09-04] VITALS (9 sets, daily range): BP systolic 111–130; BP diastolic 56–74; PULSE 75–92; RESP 18–20; TEMP 36.3–36.9; O2SAT 96–98; BMI 18.2
--- NOTE | 2019-09-04 00:46 | PC.NURSE ---
ERP speaking c Dr. Robert, pts. FMD to give update on labs and reports. Consult and POC devised for 23 hr. obs. and then f/u care.
--- NOTE | 2019-09-04 00:54 | PC.NURSE ---
ERP discussed POC c pt. and pt is agreeable to staying for obs.
[2019-09-04 01:23] LABS: D Dimer 0.58 mg/L (0.19-0.50)
[2019-09-04 01:32] LABS: BNP 1450 pg/mL (0-100)
--- NOTE | 2019-09-04 01:45 | ADMGEN ---
This patient, Vazquez Higgins, was admitted to 2nd Floor Room 226-2. Patient oriented to hospital policies and general routines including ID bracelet, bed and alarms, visiting hours, pain management, procedures, bathroom and other care routines, personal items, smoking policy, room service/diet, and visiting hours. Information on how to activate the Rapid Response Team has been discussed. Patient encouraged to report perceived risks to care and to ask questions if they do not understand what they are told or what they should do.
--- NOTE | 2019-09-04 02:05 | PC.NURSE ---
pt given sandwich and cottage cheese, denies any chest pain, call light and belongings within reach
[2019-09-04] MEDS: FUROSEMIDE INJ 40 MG/4 ML VIAL 20 MG IV PUSH (02:30)
[2019-09-04] MEDS: SODIUM CHLORIDE 0.9% IV 1,000 ML 100 ML IV CONT (02:30)
--- NOTE | 2019-09-04 03:30 | PC.NURSE ---
pt sleeping, no evidence of distress noted, iv fluids infusing per order
--- NOTE | 2019-09-04 04:30 | ECG_ITS ---
Measurements Intervals [place] Rate: 65 P: ND: 0 QRS: 223 QRSD: 104 T: 0 QT: 414 QTc: 431 Interpretive Statements ATRIAL FIBRILLATION CONSIDER LIMB LEAD REVERSAL VOLTAGE CRITERIA FOR LVH CANNOT RULE OUT SEPTAL INFARCT, AGE INDETERMINATE ST-T WAVE ABNORMALITY IN ANTEROLATERAL LEADS- CONSIDER ISCHEMIA BASELINE WANDER- V4-V6 ABNORMAL ECG Electronically Signed On 09-04-2019 11:00:38 CDT by Roldan Corbett D.O.
--- NOTE | 2019-09-04 04:35 | PC.NURSE ---
EKG performed, lab at bedside, pt denies any chest pain
[2019-09-04 05:14] LABS: Troponin I 0.05 ng/mL (0.00-0.056)
--- NOTE | 2019-09-04 05:19 | PC.NURSE ---
pt sleeping, no evidence of distress noted
--- NOTE | 2019-09-04 06:20 | PC.NURSE ---
pt sleeping, no evidence of distress noted at this time
--- NOTE | 2019-09-04 10:30 | ECG_ITS ---
Measurements Intervals [place] Rate: 81 P: NC: 0 QRS: -71 QRSD: 105 T: 215 QT: 416 QTc: 484 Interpretive Statements ATRIAL FIBRILLATION LEFT AXIS DEVIATION DELAYED PRECORDIAL R/S TRANSITION VOLTAGE CRITERIA FOR LVH ST-T WAVE ABNORMALITY IN ANTEROLATERAL LEADS- CONSIDER ISCHEMIA BASELINE ARTIFACT- I, AVL, V3 ABNORMAL ECG Electronically Signed On 09-04-2019 11:00:43 CDT by Roldan Corbett D.O.
[2019-09-04 10:42] LABS: D Dimer 0.61 mg/L (0.19-0.50)
[2019-09-04] MEDS: FLUTICASONE PROPIONATE 0.05% NA SPR 16 GM BTL (*BKC) 2 SPRAY NASAL (10:42)
[2019-09-04] MEDS: APIXABAN 2.5 MG TABLET 5 MG PO (10:43)
[2019-09-04] MEDS: lisinopriL 5 MG TABLET PO (10:43)
[2019-09-04] MEDS: POTASSIUM CHLORIDE 20 MEQ TABLET 40 MEQ PO (10:43)
[2019-09-04] MEDS: carvediloL 12.5 MG TABLET PO (10:43)
[2019-09-04] MEDS: DIGOXIN TAB 125 MCG TABLET PO (10:44)
[2019-09-04] MEDS: FUROSEMIDE 40 MG TABLET PO (10:44)
[2019-09-04 10:46] LABS: Troponin I 0.06 ng/mL (0.00-0.056)
[2019-09-04 10:49] LABS: BNP 1250 pg/mL (0-100)
[2019-09-04 11:21] LABS: Hematocrit 37.2 % (37.0-46.0); Hemoglobin 12.9 g/dL (12.4-15.3); Mean Corpuscular HGB Conc 34.7 g/dL (32.0-36.0); Mean Corpuscular Hemoglobin 32.7 pg (27.0-31.0); Mean Corpuscular Volume 94.2 fL (78.0-102.0); Mean Platelet Volume 10.4 fl (8.7-11.0); Platelet Count Result 127 K/mm3 (150-420); Red Blood Count 3.95 M/mm3 (4.70-6.10); Red Cell Distribution Width 15.5 % (11.6-14.4); White Blood Count 5.4 K/mm3 (4.8-10.8)
[2019-09-04 11:37] LABS: Alanine Aminotransferase 26 U/L (16-63); Albumin Level 3.1 g/dL (3.4-5.0); Alkaline Phosphatase 80 U/L (46-116); Anion Gap 10.5 mmol/L (7-16); Aspartate Amino Transferase 31 U/L (15-37); Bilirubin,Total 1.7 mg/dL (0.00-1.00); Blood Urea Nitrogen 25 mg/dL (7-18); Calcium 8.6 mg/dL (8.5-10.1); Carbon Dioxide 32 mmol/L (21-32); Chloride 103 mmol/L (98-108); Estimated CRCL calculation 35 ml/min; Estimated Glomerular Filt Rate 52; Glucose 84 mg/dL (70-99); Osmolality Calculated 297 mOsm/kg (285-295); Potassium 3.5 mmol/L (3.5-5.1); Sodium 142 mmol/L (136-145); Total Protein 5.8 g/dL (6.4-8.2)
--- NOTE | 2019-09-04 12:35 | PC.NURSE ---
Patient very anxious to go home. Nurse explained to patient about troponin levels and why he has not been discharged yet. Patient states he cant wait much longer, states he is going to leave whether they say he can or not. Nurse practicioner notified, ANABEL Pop in room to speak with patient.
--- NOTE | 2019-09-04 13:38 | PM.IMHP ---
H&P: HPI History of Present Illness Chief complaint: confused Narrative: Vazquez Higgins is a 79 year old male that arrived yesterday afternoon to the ED because he was concerned due to his acute shortness of breath. He is a 79 y.o. with PMH of disorder of bilirubin metabolism, retrograde amnesia, CAD, hypothyroidism, generalized anxiety, dyspnea, RICH, Atrial Fibrillation, thrombocytopenia, medication non-compliance, and CHF. He was c/o one week of feeling run down and tired, not hitting on all cylinders...not on track...disilllusioned . Per ED note, it was like he's not thinking straight. Feeling this way, he stayed in bed all day today. He doesn't feel like he's having trouble remembering things. Nothing seems to make it worse. He's not sure if it has gotten worse over time or not. He hasn't felt this way before. No hx of falls or head contusion. Pt has had minor dyspnea over the week. He was d.c. from [facility] 08/10 with acute systolic heart failure. In ED, he denies headache, visual disturbances, lightheadedness, vertigo, trouble with speech, weakness, numbness, trouble with balance. He has had no change of appetite. He doesn't feel his energy is substantially reduced. Pt. with vague symptoms of not feeling right, trouble focusing and some recent increase in dyspnea. EKG changes noted at ED admission, kept overnight for serial Troponin levels to rule out MT. He was given IV Lasix yesterday evening. Emergency Course by Dr. Suresh: Dr Robert faxed over records to ED physician from 08/29 with feeling tired and run down. Dr. Suresh spoke with Dr. Matthews. Pt has a hx of retrograde amnesia. Dr. Matthews related hx of poor compliance with meds and follow up appointments. Pt had previously voiced resistance to taking Lasix because of polyuria. TODAY, Vazquez told me that he could not remember what made him come into the emergency room yesterday. Then during the later conversation today he told me the only reason I came in to the emergency room was because I felt slightly short of breath . he told me that he has been laying in bed all day except for the 3 times he takes his dog out for a walk. His neighbors provides him with food on a routine basis. He currently denies chest pain or pressure or palpitations, denies shoulder pain or arm numbness or tingling, denies shortness of breath or dyspnea, denies headache, denies pain in legs or calves, denies warmth or tenderness in any extremity , denies chest pain or cough with deep or sudden inspiration, and denies chills or fever when he was at home prior to admission. Ordered PT OT to see patient specifically for OT to do a mini-mental exam today, which showed a scoring of 26/30 as no cognitive impairment. He had a head CT at admission that did not show any acute abnormalities, and old lacuner infarct in the left basal ganglia. His admission CXR showed lungs are hyperexpanded, consistent with chronic obstructive pulmonary disease. Calcified pulmonary nodules are consistent with old granulomatous disease. No pleural effusion or pneumothorax. Cardiomegaly is noted. His D-dimer levels have remained mildly elevated (0.58, 0.61) but stable and he denies all chest pain and shortness of breath today. His troponin levels also remain normal x2 with very mildly elevated levels at 0.06 x 2. His 3 EKGs all show chronic Afib with possible LV hypertrophy, ST-T wave abormalities in anterolateral leads. He will need to Follow up with his Stallion Keeper Dr. Herron after discharge for possible outpatient further workup. Elevated Creatinine so 100ml/hr of IVFs were started at admission. But his BNP was elevated at 1450, compared to past BNP of 615 on August 10. Patient not remembering to take his medications or refusing to take the medications due to increased urination. Spoke with Radiology department a couple of times regarding missing ECHO report from August 21. Dig level low. UA clear. His TSH is elevated at 6.90, started on low dose Levothyrox
--- NOTE | 2019-09-04 14:30 | PC.NURSE ---
Patient sitting up in chair resting. Patient is to be discharge home. IV site removed, tip intact. Dressing applied to site. Patient denies any needs at this time. States he is anxious to leave.
[2019-09-04 14:33] LABS: Troponin I 0.06 ng/mL (0.00-0.056)
--- NOTE | 2019-09-04 15:43 | PM.DS ---
DS: Diagnosis Discharge Diagnosis (1) Congestive heart failure: Qualifiers: Heart failure chronicity: acute Heart failure type: systolic Qualified Code(s): I50.21 - Acute systolic (congestive) heart failure Code(s): I50.9 - Heart failure, unspecified Status: Acute Assessment and Plan: Acute on Chronic CHF exacerbation at admission. may explain EKG changes (including Twave inversion) T wave inversion with ST changes and evident hypertrophy in recent EKGs- faxed the 3 EKGs and past EKG to Ferris Wheel Operator Dr. Herron for him to follow up with the patient soon on an outpatient basis. Differential Diagnosis: Hyponatremia (sodium 138-142) rulled out, hypocalcemia (8.6 -9.2) ruled out, infections such as UTI or pneumonia (CXR clear, lung auscultation clear, UA nitrate -, 0-3 WBC) ruled out, hypothyroidism (TSH 6.9 started on low dose levothyroxine) , pleurisy (CXR reviewed), Anxiety (appears calm and pleasant but is impatient), GERD (denies acid reflux, but should F/U with PCP and/or Ferris Wheel Operator) . (2) DVT prophylaxis: Code(s): Z29.9 - Encounter for prophylactic measures, unspecified Status: Acute Assessment and Plan: continued home daily dosing of Eliquis (3) Attention and concentration deficit: Code(s): R41.840 - Attention and concentration deficit Status: Acute Assessment and Plan: Treating thyroid deficit. Will need to f/u with PCP for further work up, possible Vitamin D, B6 and B12 levels, Cortisol, etc. Ruling out Differential Diagnoses: Hyponatremia (sodium 138-142) ruled out, hypocalcemia (8.6 -9.2) ruled out, infections such as UTI or pneumonia (CXR clear, lung auscultation clear, UA nitrate -, 0-3 WBC) ruled out, hypothyroidism (TSH 6.9 started on low dose levothyroxine) , intracranial bleed (on Eliquis) or mass (ruled out by head CT not showing acute concern), encephalopathy (WBC wnl, neuro status wnl, Mini-mental exam 25/30 with no cognitive impairment noted) may benefit from outpatient [employer] program here at [facility]. (4) Atypical chest pain: Code(s): R07.89 - Other chest pain Status: Acute Assessment and Plan: Acute on Chronic CHF exacerbation at admission. RESOLVED today per patient report, not requiring Nitro or pain medications. may explain EKG changes (including Twave inversion) T wave inversion with ST changes and evident hypertrophy in recent EKGs- faxed the 3 EKGs and past EKG to Ferris Wheel Operator Dr. Herron for him to follow up with the patient soon on an outpatient basis. Differential Diagnosis: Hyponatremia (sodium 138-142) rulled out, hypocalcemia (8.6 -9.2) ruled out, infections such as UTI or pneumonia (CXR clear, lung auscultation clear, UA nitrate -, 0-3 WBC) ruled out, hypothyroidism (TSH 6.9 started on low dose levothyroxine) , pleurisy (CXR reviewed, no concerning fluid or scarring at this time), Anxiety (appears calm and pleasant but is impatient and demanding, may need to start anti-depressant/anti-anxiety med such as Lexapro and can discuss with PCP at follow up visit), GERD (denies acid reflux, but should F/U with PCP and/or Ferris Wheel Operator) . (5) Hypothyroidism: Code(s): E03.9 - Hypothyroidism, unspecified Status: Acute Assessment and Plan: Thyroid Function was slightly abnormal (TSH 6.9), started on low dose Levothyroxine. Follow up with Primary Care Physician for further Thyroid medication and labwork followup. DS: Summary Time Spent with Patient Time attestation: Total time spent providing and/or coordinating discharge services: >60 min Exam Const: General: comfortable, no acute distress, alert and confusion; No in distress or uncomfortable Orientation/consciousness: patient oriented x3 and confusion Limitations: No physical limitations HENMT: Head: normal to inspection and no hematomas General nose exam: Normal nares present Face and sin
--- NOTE | 2019-09-04 19:35 | PM.EVENT ---
Event Note Event Note Event Note: Patient states that he feels much better today. Denies chest pain at the time of exam. alert and oriented, no acute distress. Mucous membranes moist. Lungs clear to auscultation bilaterally. Regular rate and rhythm without murmur rub or gallop. Distal pulses are full and symmetric. Extremities are warm and dry. No significant change in his troponin. Follow-up with his cigar bander hand will be essential. I have examined the patient and reviewed the chart. I discussed the patient's care with A Eros MAZA and agree with her assessment and plan.
== END 2019-09-04 15:40 | disposition home or self-care (01) ==
LOC: CHSED 21:06 → CHS2ND 09-04 01:13
PROVIDERS: Nurse Practitioner; Admitting Provider Family Medicine; Emergency Provider Family Medicine; PCP Family Medicine; Visit Provider Family Medicine
DX: I50.23 Acute on chronic systolic (congestive) heart failure (principal); R41.840 Attention and concentration deficit; E03.9 Hypothyroidism, unspecified; F41.9 Anxiety disorder, unspecified; I48.20 Chronic atrial fibrillation, unspecified; D69.6 Thrombocytopenia, unspecified; R94.31 Abnormal electrocardiogram [ECG] [EKG]; I25.10 Atherosclerotic heart disease of native coronary artery without angina pectoris; F17.290 Nicotine dependence, other tobacco product, uncomplicated
CPT/HCPCS: 36415; 70450; 71045; 80053; 80162; 81001; 83735; 83880; 84439; 84443; 84484; 85027; 85055; 85380; 93005; 96374; 97161; 97165; 99285; A9270; G0378; J1940; J7030

== ENCOUNTER 2019-11-21 11:25 | Outpatient (CLI) | payer MEDICARE, SELFPAY ==
--- NOTE | ~2019-11-21 | XR_ITS ---
EXAMINATION: XR finger 2nd RT min 2V DATE: 11/21/2019 11:47 INDICATION: Right hand second digit pain. TECHNIQUE: 4 views of right hand second digit were obtained. COMPARISON: None. FINDINGS: Bone alignment is normal. No fracture. There is mild osteoarthritis of second proximal and distal interphalangeal joints. IMPRESSION: 1. Polyarticular osteoarthritis. Reviewed, dictated and finalized at location A.
--- NOTE | ~2019-11-21 | XR_ITS ---
EXAMINATION: XR chest 2V 11/21/2019 11:47 INDICATION: Smoker's cough PROCEDURE: 2 view chest COMPARISON: Comparison to multiple prior studies sequentially, with oldest reviewed study dated 08/09. FINDINGS: The lungs are clear. The lungs are hyperinflated which is consistent with, but not diagnost ic of chronic obstructive pulmonary disease. There is coronary atherosclerosis. The cardiomediastinal silhouette is enlarged. There are no pleural effusions. There is no pneumothorax suspected. IMPRESSION: 1: NO ACUTE CARDIOPULMONARY DISEASE. Reviewed, dictated and finalized at location A.
== END 2019-11-21 11:26 | disposition home or self-care (01) ==
LOC: CHSIMG 11:27
PROVIDERS: PCP Family Medicine; Visit Provider Family Medicine
DX: R05 Cough (principal); M79.644 Pain in right finger(s)
CPT/HCPCS: 71046; 73140

== ENCOUNTER 2020-04-15 12:17 | Outpatient (NON) | payer MEDICARE, SELFPAY ==
[2020-04-15 12:50] LABS: Basophils Absolute Auto 0.03 K/mm3 (0.00-0.10); Basophils Percent Auto 0.6 % (0.0-1.0); Eosinophils Absolute Auto 0.06 K/mm3 (0.02-0.50); Eosinophils Percent Auto 1.3 % (1.0-6.0); Hematocrit 40.8 % (37.0-46.0); Hemoglobin 14.2 g/dL (12.4-15.3); Immature Platelet Fraction Pct 2.3 % (1.0-7.0); Lymphocytes Absolute Auto 1.16 K/mm3 (1.10-4.50); Lymphocytes Percent Auto 24.7 % (18.0-42.0); Mean Corpuscular HGB Conc 34.8 g/dL (32.0-36.0); Mean Corpuscular Hemoglobin 32.7 pg (27.0-31.0); Mean Platelet Volume 9.4 fl (8.7-11.0); Monocytes Absolute Auto 0.52 K/mm3 (0.10-0.90); Monocytes Percent Auto 11.1 % (2.0-11.0); Neutrophils Absolute Auto 2.9 K/mm3 (1.7-7.2); Neutrophils Percent Auto 62.3 % (50.0-70.0); Platelet Count Result 149 K/mm3 (150-420); Red Blood Count 4.34 M/mm3 (4.70-6.10); Red Cell Distribution Width 13.7 % (11.6-14.4); White Blood Count 4.7 K/mm3 (4.8-10.8)
[2020-04-15 13:45] LABS: Alanine Aminotransferase 18 U/L (16-63); Albumin Level 3.9 g/dL (3.4-5.0); Alkaline Phosphatase 87 U/L (46-116); Anion Gap 9 mmol/L (8-16); Aspartate Amino Transferase 18 U/L (15-37); Bilirubin,Total 1.5 mg/dL (0.00-1.00); Blood Urea Nitrogen 19 mg/dL (7-18); Calcium 9.4 mg/dL (8.5-10.1); Carbon Dioxide 29 mmol/L (21-32); Chloride 104 mmol/L (98-108); Estimated Glomerular Filt Rate > 60; Free T4 Free Thyroxine 0.82 ng/dL (0.76-1.46); Glucose 119 mg/dL (70-99); Osmolality Calculated 297 mOsm/kg (285-295); Potassium 3.7 mmol/L (3.5-5.1); Sodium 142 mmol/L (136-145); Thyroid Stimulating Hormone 5.34 uIU/mL (0.36-3.74); Total Protein 6.8 g/dL (6.4-8.2); Vitamin B12 302 pg/mL (193-986)
[2020-04-18 11:46] LABS: Vitamin D 25 Hydroxy 27 ng/mL (30-100)
== END 2020-04-15 12:18 ==
LOC: CHSLAB 12:19
PROVIDERS: Visit Provider Nurse Practitioner Family
DX: Z00.00 Encounter for general adult medical examination without abnormal findings (principal); I50.21 Acute systolic (congestive) heart failure; R63.4 Abnormal weight loss; E03.9 Hypothyroidism, unspecified; R53.83 Other fatigue; Z79.899 Other long term (current) drug therapy
CPT/HCPCS: 36415; 80053; 82306; 82607; 83036; 84439; 84443; 85025; 85055

== ENCOUNTER 2020-04-22 08:46 | Outpatient (CLI) | payer MEDICARE, SELFPAY ==
--- NOTE | ~2020-04-22 | US_ITS ---
EXAMINATION: US right upper quadrant EXAM DATE: 04/22/2020 09:25 INDICATION: Jaundice. TECHNIQUE: Multiple grayscale and Doppler images of the abdomen right upper quadrant were obtained (b y a technologist who performed the scan) and subsequently reviewed. Comparison is made to prior exami nation from 02/28/2018. Correlation was made with multi phase abdomen CT 03/05/2018. FINDINGS: The pancreatic head and body are normal in appearance. The pancreatic tail is not visualized. The l iver has normal echogenicity and contour. Complex partially cystic liver mass posteriorly measuring 2.2 cm. There is no evidence of intrahepatic biliary duct dilation. Portal venous flow was seen in the hepatopedal, normal direction and has normal Doppler waveform. No right-sided hydronephrosis. Common bile duct measures 2 mm, which is normal. The gallbladder wall is normal in thickness, with ex pected amount of distention. No sonographic evidence of pericholecystic fluid. There is no cholelit hiases. Technologist performing exam reports patient did not demonstrate sonographic Young's sign. Please note that this sign is less reliable in patients who have received pain medication. IMPRESSION: 1. Small nonspecific liver mass. Previously determined to be hemangioma by multiphasic CT. 2. No biliary dilation. Reviewed, dictated and finalized at location A. OPERATIONS DIRECTOR IMPRESSION: 1. Small nonspecific liver mass. Previously determined to be hemangioma by mul tiphasic CT. 2. No biliary dilation.
[2020-04-22 09:38] LABS: Alanine Aminotransferase 21 U/L (16-63); Albumin Level 4.7 g/dL (3.4-5.0); Alkaline Phosphatase 86 U/L (46-116); Anion Gap 8 mmol/L (8-16); Aspartate Amino Transferase 25 U/L (15-37); Bilirubin,Total 2.3 mg/dL (0.00-1.00); Blood Urea Nitrogen 26 mg/dL (7-18); Carbon Dioxide 31 mmol/L (21-32); Chloride 103 mmol/L (98-108); Estimated Glomerular Filt Rate > 60; Glucose 95 mg/dL (70-99); Osmolality Calculated 298 mOsm/kg (285-295); Potassium 3.9 mmol/L (3.5-5.1); Sodium 142 mmol/L (136-145); Total Protein 7.8 g/dL (6.4-8.2)
[2020-04-25 04:47] LABS: Hepatitis A Antibody IgM Nonreactive; Hepatitis B Core Antibody Nonreactive (Nonreactive); Hepatitis B Surface Antigen Nonreactive (Nonreactive); Hepatitis C Signal to Cutoff 0.02 ratio (<1.00); Hepatitis C Virus Antibody Nonreactive (Nonreactive)
== END 2020-04-22 08:47 | disposition home or self-care (01) ==
PROVIDERS: PCP Nurse Practitioner Family; Visit Provider Nurse Practitioner Family
DX: R17 Unspecified jaundice (principal); R63.4 Abnormal weight loss
CPT/HCPCS: 36415; 76705; 80053; 80074

== ENCOUNTER 2020-06-13 01:52 | Outpatient (CLI) | payer MEDICARE, SELFPAY ==
[2020-06-13 20:09] LABS: SARS-CoV-2 RNA PCR Negative
== END 2020-06-13 01:53 | disposition home or self-care (01) ==
LOC: ANHCOVIDDT 01:52
PROVIDERS: PCP Nurse Practitioner Family; Visit Provider Internal Medicine Gastroenterology
DX: Z01.818 Encounter for other preprocedural examination (principal); Z20.828 Contact with and (suspected) exposure to other viral communicable diseases
CPT/HCPCS: C9803; U0003

== ENCOUNTER 2020-06-17 01:33 | Day surgery (SDC) | payer MEDICARE, SELFPAY ==
[2020-06-01 13:38] VITALS: BMI 17.2
[2020-06-17] MEDS: LACTATED RINGERS 1,000 ML 150 ML IV CONT (10:43)
[2020-06-17 10:47] VITALS: BP 131/82; PULSE 84; RESP 20; TEMP 36.7; O2SAT 100
--- NOTE | 2020-06-17 11:40 | WPDANESEPPF ---
Anes - Initial Pre Proc Eval Procedure: Operation Date: 06/17/20 11:30 Proposed Procedures p Esophagogastroduodenoscopy - Juan Davison MD Date/Time: 06/17/20 11:40 Surgeon: Juan Davison MD Pre Op Diagnosis: Dysphagia Patient Data Age: 79 Gender: M Height: 5 ft 11 in Weight: 58.3 kg Last Vital Signs Temp 98.1 F 06/17/20 10:47 Pulse 84 06/17/20 10:47 Resp 20 06/17/20 10:47 BP 131/82 06/17/20 10:47 Pulse Ox 100 06/17/20 10:47 Allergies Allergy/AdvReac Type Severity Reaction Status Date / Time Penicillins Allergy Hives Verified 06/17/20 10:45 Home Medications Medication Instructions Recorded Confirmed Type apixaban 5 mg tablet 5 mg PO BID #180 tablet 01/07/20 06/01/20 Rx lisinopril 5 mg tablet 5 mg PO DAILY #90 tablet 04/10/20 06/01/20 Rx carvedilol 12.5 mg tablet 12.5 mg PO BID #180 tablet 05/05/20 06/01/20 Rx digoxin 125 mcg (0.125 mg) tablet 125 mcg PO DAILY #90 tablet 05/12/20 06/01/20 Rx famotidine 20 mg tablet 20 mg PO DAILY #90 tablet 05/12/20 06/01/20 Rx Patient hx anesthesia problems: none Family hx anesthesia problems: none PMFSH Past Medical History Medical History (Updated 05/14/20 @ 10:33 by Juan Davison MD) Anxiety disorder Atrial fibrillation CAD (coronary artery disease) Congestive heart failure Disorder of bilirubin metabolism Dysphagia Hypothyroidism Liver lesion Retrograde amnesia Systolic heart failure Thrombocytopenia Tobacco pipe smoker Underweight Surgical History Surgical History History of inguinal hernia repair S/P colonoscopic polypectomy Family History Family History Father Alzheimer disease Mother Unknown family medical history Social History Social History (Updated 05/14/20 @ 09:57 by Monica Tellez) Years smoked: 40 Smoking status: Current every day smoker Tobacco type: pipe Smokeless tobacco user: chewing tobacco Second hand tobacco smoke exposure: Yes Smoking end date: 06/25/19 Alcohol intake: unknown Substance use: never Substance use type: does not use Living arrangements: alone Gender identity (if verbalized by the patient): Male Spiritual care concerns: No Agree to blood products: Yes Anes - Eval Final PreProcedure Day of Procedure 06/17/20 11:40 Patient weight: normal Heart: irregular rhythm Lungs: clear to auscultation Airway: Mallampati scale class II Neurological: alert and oriented Last oral intake: >/= 8 hours ASA classification: IV Emergent: no Anesthetic plan: proceed Anesthesia type and monitoring: general GIVS and standard monitoring Informed Consent: The patient's anesthetic plan and its attendant risks and benefits were discussed with the patient/family/POA. Questions were solicited and answers provided to the satisfaction of the patient/family/POA.
--- NOTE | 2020-06-17 12:00 | PM.HPGS ---
History of Present Illness History of Present Illness Consent: Risks, benefits, and alternatives have been discussed and questions answered. Patient agrees to proceed with procedure. Chief complaint: Dysphagia Narrative: Vazquez Higgins is a 79 year old male with intermittent dysphagia to bread Review of Systems Constitutional: Constitutional: Denies headache(s) and Denies weakness Eyes: Eyes: Denies blurry vision ENT: Reports Normal hearing present, Denies headache(s) and Denies neck pain Cardiovascular: Cardiovascular: Denies chest pain and Denies dyspnea Respiratory: Respiratory: Denies dyspnea Gastrointestinal: Gastrointestinal: Reports no additional gastrointestinal complaints Genitourinary: Genitourinary: Denies dysuria Musculoskeletal: Musculoskeletal: Denies neck pain Integumentary/Breasts: Skin/Breast: Denies dry skin Neurologic: Reports Normal hearing present, Denies headache(s) and Denies weakness Psychiatric: Psychiatric: Denies anxiety Endocrine: Endocrine: Denies change in body appearance Hematologic/Lymphatic: Hematologic/Lymphatic: Denies easy bleeding Allergic/Immunologic: Allergic/Immunologic: Denies urticaria PMFSH Past Medical History Medical History (Updated 05/14/20 @ 10:33 by Juan Davison MD) Anxiety disorder Atrial fibrillation CAD (coronary artery disease) Congestive heart failure Disorder of bilirubin metabolism Dysphagia Hypothyroidism Liver lesion Retrograde amnesia Systolic heart failure Thrombocytopenia Tobacco pipe smoker Underweight Surgical History Surgical History History of inguinal hernia repair S/P colonoscopic polypectomy Family History Family History Father Alzheimer disease Mother Unknown family medical history Social History Social History (Updated 05/14/20 @ 09:57 by Monica Tellez) Years smoked: 40 Smoking status: Current every day smoker Tobacco type: pipe Smokeless tobacco user: chewing tobacco Second hand tobacco smoke exposure: Yes Smoking end date: 06/25/19 Alcohol intake: unknown Substance use: never Substance use type: does not use Living arrangements: alone Gender identity (if verbalized by the patient): Male Spiritual care concerns: No Agree to blood products: Yes Meds Home Medications and Allergies Home Medications Medication Instructions Recorded Confirmed Type apixaban 5 mg tablet 5 mg PO BID #180 tablet 01/07/20 06/01/20 Rx lisinopril 5 mg tablet 5 mg PO DAILY #90 tablet 04/10/20 06/01/20 Rx carvedilol 12.5 mg tablet 12.5 mg PO BID #180 tablet 05/05/20 06/01/20 Rx digoxin 125 mcg (0.125 mg) tablet 125 mcg PO DAILY #90 tablet 05/12/20 06/01/20 Rx famotidine 20 mg tablet 20 mg PO DAILY #90 tablet 05/12/20 06/01/20 Rx Allergies Allergy/AdvReac Type Severity Reaction Status Date / Time Penicillins Allergy Hives Verified 06/17/20 10:45 Vital Signs Vital Signs - 24 hr 06/17/20 10:47 Temperature 98.1 F Pulse Rate 84 Respiratory Rate 20 Blood Pressure 131/82 Pulse Oximetry 100 Exam Const: General: comfortable and no acute distress HENMT: General nose exam: Normal nares present Eyes: General: appearance normal, both eyes and all related structures Neck: Neck: no JVD Resp: Auscultation: clear to auscultation bilaterally Cardio: Rate: regular rate Rhythm: regular rhythm GI: Inspection: non-distended GI Palp: Yes Soft to palpation Skin: General skin exam: normal color Neuro: General: gait normal Speech: normal speech Extrem: General: normal to inspection Psych: Mental Status: mental status grossly normal Assessment and Plan Assessment and plan (1) Dysphagia: Code(s): R13.10 - Dysphagia, unspecified Status: Acute Assessment and Plan: egd to assess
[2020-06-17] MEDS: BENZOCAINE (*SP) 60 ML SPRAY CAN (HURRICAINE) 1 SPRAY MUCOUS MEM (12:01)
[2020-06-17 12:13] VITALS: BP 124/74; PULSE 74; RESP 22; O2SAT 97
[2020-06-17 12:23] VITALS: BP 127/71; PULSE 69; RESP 20; O2SAT 98
[2020-06-17 12:33] VITALS: BP 145/73; PULSE 66; RESP 22; O2SAT 99
== END 2020-06-17 13:00 | disposition home or self-care (01) ==
PROVIDERS: PCP Nurse Practitioner Family; Visit Provider Internal Medicine Gastroenterology
PROC: 0DJ08ZZ Inspection of Upper Intestinal Tract, Via Natural or Artificial Opening Endoscopic (ICD-10-PCS; CPT 43235; principal; 2020-06-17 11:30)
DX: R13.10 Dysphagia, unspecified (principal); K29.50 Unspecified chronic gastritis without bleeding; F41.9 Anxiety disorder, unspecified; I48.91 Unspecified atrial fibrillation; I25.10 Atherosclerotic heart disease of native coronary artery without angina pectoris; I50.20 Unspecified systolic (congestive) heart failure; E80.7 Disorder of bilirubin metabolism, unspecified; E03.9 Hypothyroidism, unspecified; K76.9 Liver disease, unspecified; R41.2 Retrograde amnesia; F17.290 Nicotine dependence, other tobacco product, uncomplicated; Z79.01 Long term (current) use of anticoagulants
CPT/HCPCS: 43239; 88305; J2704; J7120

== ENCOUNTER 2021-03-15 11:34 | Outpatient (CLI) | payer MEDICARE, SELFPAY ==
[2021-03-15 12:01] LABS: Hematocrit 46.3 % (37.0-46.0); Hemoglobin 16.2 g/dL (12.4-15.3); Immature Platelet Fraction Pct 3.9 % (1.0-7.0); Mean Corpuscular Hemoglobin 33.4 pg (27.0-31.0); Mean Corpuscular Volume 95.5 fL (78.0-102.0); Mean Platelet Volume 9.6 fl (8.7-11.0); Platelet Count Result 128 K/mm3 (150-420); Red Blood Count 4.85 M/mm3 (4.70-6.10); Red Cell Distribution Width 14.2 % (11.6-14.4); White Blood Count 4.8 K/mm3 (4.8-10.8)
[2021-03-15 13:04] LABS: Alanine Aminotransferase 24 U/L (16-63); Albumin Level 4.3 g/dL (3.4-5.0); Alkaline Phosphatase 96 U/L (46-116); Anion Gap 9 mmol/L (8-16); Aspartate Amino Transferase 23 U/L (15-37); Bilirubin,Total 1.3 mg/dL (0.00-1.00); Blood Urea Nitrogen 23 mg/dL (7-18); Calcium 9.8 mg/dL (8.5-10.1); Carbon Dioxide 32 mmol/L (21-32); Chloride 104 mmol/L (98-108); Cholesterol 183 mg/dL (0-200); Estimated Glomerular Filt Rate > 60; Glucose 87 mg/dL (70-99); HDL Direct 57 mg/dL (40-60); LDL Cholesterol Calculated 117 mg/dL (<130); Osmolality Calculated 302 mOsm/kg (285-295); Potassium 4.7 mmol/L (3.5-5.1); Sodium 145 mmol/L (136-145); Total Protein 7.7 g/dL (6.4-8.2); Triglycerides 45 mg/dL (0-150)
[2021-03-15 13:22] LABS: Thyroid Stimulating Hormone Reflex 9.53 u/IU/mL (0.36-3.74)
[2021-03-15 13:23] LABS: Free T4 Free Thyroxine Reflex 0.81 ng/dL (0.76-1.46)
== END 2021-03-15 11:35 | disposition home or self-care (01) ==
LOC: CHSLAB 11:36
PROVIDERS: PCP Family Medicine; Visit Provider Family Medicine
DX: I50.20 Unspecified systolic (congestive) heart failure (principal); E11.9 Type 2 diabetes mellitus without complications
CPT/HCPCS: 36415; 80053; 80061; 84439; 84443; 85027; 85055

== ENCOUNTER 2021-07-02 14:01 | Inpatient (IN) | payer MEDICARE, SELFPAY ==
[2021-07-02] VITALS (7 sets, daily range): BP systolic 84–133; BP diastolic 47–86; PULSE 88–121; RESP 18–20; TEMP 36.5–37.2; O2SAT 88–97
--- NOTE | ~2021-07-02 | XR_ITS ---
EXAMINATION: XR chest 1V portable EXAM DATE: 07/02/2021 14:32 INDICATION: dyspnea, hypoxia, SOB . TECHNIQUE: Portable AP frontal chest x-ray was obtained. Comparison is made to prior examination from 11/21/2019. FINDINGS: Severe cardiomegaly. The lungs are hyperinflated which can be seen with chronic obstructive pulmonary disease (a clinical diagnosis of functional impairment), but is not diagnostic of it. Mild ly increased right midlung zone density and mildly indistinct lower lung zone reticulation. Could be developing mild edema or viral pneumonia. No pneumothorax or pleural effusion. IMPRESSION: 1. Bilateral ill-defined airspace disease, possible developing edema or pneumonia. 2. Severe cardiomegaly and hyperinflation. Reviewed, dictated and finalized at location B. MAKING OPERATOR IMPRESSION: 1. Bilateral ill-defined airspace disease, possible developing edema or pneumo james. 2. Severe cardiomegaly and hyperinflation.
--- NOTE | 2021-07-02 14:06 | ED.SOB ---
HPI - SOB/Dyspnea General Chief Complaint: Weakness Stated Complaint: AMBULANCE Time Seen by Provider: 07/02/21 14:02 Source: patient and EMS Mode of arrival: EMS Limitations: altered mental status History of Present Illness HPI Narrative: 8-year-old man with a history of congestive heart failure, and atrial fibrillation brought to the emergency room by EMS after he called saying that he was sick. Patient states that he has been sick for 2 weeks and that he feels short of breath and weak. He denies vomiting, diarrhea, fever, chest pain, productive cough, abdominal pain, dysuria, and recent falls. He has not had the COVID vaccine. MD elicited complaint: shortness of breath and cough Pertinent past history: congestive heart failure Onset (ago): week(s) (2) Context: medication noncompliance (per daughter) Timing: constant and progressively worsening Severity: moderate Exacerbating factors: lying flat Relieving factors: nothing Known history of: congestive heart failure Associated symptoms: cough and sputum production Treatment prior to arrival: oxygen Related Data Home oxygen amount: none Allergies Allergy/AdvReac Type Severity Reaction Status Date / Time Penicillins Allergy Hives Verified 07/02/21 14:20 Review of Systems Review of Systems: All systems reviewed & are unremarkable except as noted in HPI and below Constitutional: Constitutional: Denies chills and Denies fever(s) Eyes: Eyes: Denies change in vision and Denies photophobia ENT: Reports nasal congestion and Reports sore throat Cardiovascular: Cardiovascular: Denies chest pain and Denies radiating jaw, neck or arm pain Respiratory: Respiratory: Reports chest congestion, Reports cough and Reports dyspnea Gastrointestinal: Gastrointestinal: Denies abdominal pain, Denies diarrhea, Denies nausea and Denies vomiting Genitourinary: Genitourinary: Denies dysuria and Denies urinary frequency Musculoskeletal: Musculoskeletal: Denies back pain, Denies arthralgias and Denies joint swelling Integumentary/Breasts: Skin/Breast: Denies pruritus, Denies erythema and Denies rash Neurologic: Denies vertigo, Denies dizziness, Denies syncope, Denies focal weakness and Reports weakness Hematologic/Lymphatic: Hematologic/Lymphatic: Denies easy bleeding Allergic/Immunologic: Allergic/Immunologic: Denies lip swelling and Denies throat swelling PMF Past Medical History Medical History Atrial fibrillation CAD (coronary artery disease) Disorder of bilirubin metabolism Dysphagia Hypothyroidism Liver lesion Retrograde amnesia Systolic heart failure Thrombocytopenia Tobacco pipe smoker Underweight Surgical History Surgical History History of inguinal hernia repair S/P colonoscopic polypectomy Family History Family History Father Alzheimer disease Mother Unknown family medical history Social History Social History Years smoked: 40 Smoking status: Current every day smoker Tobacco type: pipe Smokeless tobacco user: chewing tobacco Second hand tobacco smoke exposure: Yes Smoking end date: 06/25/19 Alcohol intake: never Alcohol use details: Occasional Substance use: never Substance use type: does not use Gender identity (if verbalized by the patient): Male Spiritual care concerns: No Agree to blood products: Yes Exam Const: General: alert and ill appearing acutely and chronically Nutritional Appearance: thin Other: Moderate acute distress. disoriented to day, date and year. HENMT: Head: normal to inspection Ears: external ears normal, TM's normal bilaterally and EAC's normal General nose exam: Normal nares present Face and sinus: normal facial exam Mouth: Yes moist mucous membranes Throat: posteri
--- NOTE | 2021-07-02 14:07 | ECG_ITS ---
Measurements Intervals Thayer Rate: 124 P: MI: 0 QRS: -84 QRSD: 117 T: 91 QT: 302 QTc: 434 Interpretive Statements ATRIAL FIBRILLATION WITH RAPID VENTRICULAR RESPONSE INTRAVENTRICULAR CONDUCTION DELAY ANTEROSEPTAL INFARCT, AGE INDETERMINATE INFERIOR INFARCT, AGE INDETERMINATE BORDERLINE ST-T WAVE ABNORMALITY- HIGH LATERAL LEADS PEAKED T WAVES- CONSIDER HYPERKALEMIA BASELINE ARTIFACT- I, AVR, AVL ABNORMAL ECG Electronically Signed On 07-02-2021 14:32:57 [employer] by Roldan Corbett D.O.
[2021-07-02 14:49] LABS: Basophils Absolute Auto 0.01 K/mm3 (0.00-0.10); Basophils Percent Auto 0.1 % (0.0-1.0); Hematocrit 47.4 % (37.0-46.0); Hemoglobin 16.3 g/dL (12.4-15.3); Immature Granulocyte Absolute 0.03 K/mm3 (0.00-0.00); Immature Granulocyte Percent A 0.4 % (0.0-0.0); Immature Platelet Fraction Pct 7.7 % (1.0-7.0); Lymphocytes Absolute Auto 0.65 K/mm3 (1.10-4.50); Lymphocytes Percent Auto 9.2 % (18.0-42.0); Mean Corpuscular HGB Conc 34.4 g/dL (32.0-36.0); Mean Corpuscular Hemoglobin 32.7 pg (27.0-31.0); Monocytes Absolute Auto 0.29 K/mm3 (0.10-0.90); Monocytes Percent Auto 4.1 % (2.0-11.0); Neutrophils Absolute Auto 6.1 K/mm3 (1.7-7.2); Neutrophils Percent Auto 86.2 % (50.0-70.0); Platelet Count Result 103 K/mm3 (150-420); Red Blood Count 4.99 M/mm3 (4.70-6.10); White Blood Count 7.1 K/mm3 (4.8-10.8)
[2021-07-02 15:04] LABS: INR 1.4; Prothrombin Time 15.1 Seconds (9.50-12.10)
[2021-07-02 15:11] LABS: Alanine Aminotransferase 85 U/L (16-63); Albumin Level 3.5 g/dL (3.4-5.0); Alkaline Phosphatase 89 U/L (46-116); Anion Gap 19 mmol/L (8-16); Aspartate Amino Transferase 223 U/L (15-37); Blood Urea Nitrogen 32 mg/dL (7-18); Calcium 9.1 mg/dL (8.5-10.1); Carbon Dioxide 18 mmol/L (21-32); Chloride 95 mmol/L (98-108); Estimated CRCL calculation 20 ml/min; Estimated Glomerular Filt Rate 30; Glucose 76 mg/dL (70-99); Osmolality Calculated 279 mOsm/kg (285-295); Potassium 4.8 mmol/L (3.5-5.1); Sodium 132 mmol/L (136-145); Total Protein 7.3 g/dL (6.4-8.2)
[2021-07-02 15:20] LABS: Troponin I 1533.6 ng/L (0.00-60.4)
[2021-07-02 15:23] LABS: Magnesium 2.2 mg/dL (1.8-2.4); NT Pro B Type Natriuretic Pept > 35000 pg/mL (0-450)
[2021-07-02 15:31] LABS: Influenza A QL RT-PCR Negative (Negative); Influenza B QL RT-PCR Negative (Negative); SARS-CoV-2 RNA PCR Positive (Negative)
[2021-07-02] MEDS: ASPIRIN 81 MG CHEWABLE TABLET 324 MG PO (15:36)
[2021-07-02] MEDS: SODIUM CHLORIDE 0.9% IV 500 ML 999 ML IV CONT (15:37)
[2021-07-02 15:38] LABS: Add Urine Microscopic? YES; Appearance Urine Cloudy (Clear); Bilirubin Urine 2+ (Negative); Blood Urine 3+ (Negative); Color Urine Dark Yellow (Yellow); Glucose Urine UA Negative (Negative); Ketones Urine Negative (Negative); Leukocyte Esterase Ur Negative LEU/UL (Negative); Nitrate Urine Negative (Negative); Protein Urine 3+ (Negative); Specific Grav Ur >= 1.030 (1.010-1.020); pH Urine 5.5 (5.0-8.0)
[2021-07-02 15:49] LABS: Bacteria Urine 2+ /hpf; Renal Epithelial Cells Urine Few /hpf; Squamous Epithelial Cell Urine Few /hpf (Few); WBC Urine 0-3 /hpf (0-3)
[2021-07-02 16:03] LABS: Digoxin < 0.2 ng/mL (0.9-2.0)
[2021-07-02 16:03] LABS: Creatine Kinase 1173 U/L (39-308)
--- NOTE | 2021-07-02 16:13 | PC.NURSE ---
erp on phone with daughter. pt resting quietly. resp even and non-labored. denies pain at this time.
--- NOTE | 2021-07-02 16:33 | PC.NURSE ---
erp on phone with dr davis discussing pt care. no change in monitor pattern. BP remains low. resp even and non-labored at rest.
[2021-07-02] MEDS: DIGOXIN INJ 250 MCG/ML 2 ML AMP (*BKC) IV PUSH (16:55)
--- NOTE | 2021-07-02 17:40 | PC.NURSE ---
pt becoming restless. 30 ml dk yellow urine noted in indwelling urine drainage bag. resp even and non-labored. a-fib noted on monitor rate 117. rare PVC noted. saline lock intact to left wrist. o2 n/c in place. sat 95. pt sipping water without c/o nausea. denies sob or pain at this time.
[2021-07-02 17:42] LABS: Reflex Lactic Acid Yes or No Add Lactic
[2021-07-02] MEDS: carvediloL 12.5 MG TABLET PO (18:19)
[2021-07-02] MEDS: HEPARIN SODIUM 5,000 UNITS/ML VIAL 3500 UNITS IV PUSH (18:50)
[2021-07-02] MEDS: HEPARIN SOD/D5W 100 UNITS/ML 25,000 UNITS/250 ML BAG 7 UNITS IV CONT (18:55)
--- NOTE | 2021-07-02 19:11 | PC.NURSE ---
daughter, valentin contacted per phone and discussed end of life wishes. daughter states pt did not anything done. she states she has DNR papers and will bring them to [facility].
[2021-07-02 20:37] LABS: Lactic Acid 1.4 mmol/L (0.4-2.0)
[2021-07-02 20:51] LABS: Troponin I 4201.8 ng/L (0.00-60.4)
--- NOTE | 2021-07-02 21:03 | PC.NURSE ---
pt to room 209 at 2030; daughter notified at 2100
[2021-07-02] MEDS: REMDESIVIR 200 MG/NS 250 ML 200 MG/250 ML BAG 250 MG IVPB (23:55)
[2021-07-03] VITALS (11 sets, daily range): BP systolic 62–88; BP diastolic 32–56; PULSE 66–100; RESP 16–20; TEMP 36.1–38.2; O2SAT 93–100; BMI 16.7
--- NOTE | 2021-07-03 00:38 | PC.NURSE ---
Blood pressure of 79/[address] Castillo with new order received.
[2021-07-03] MEDS: SODIUM CHLORIDE 0.9% IV 500 ML IV CONT (01:08)
--- NOTE | 2021-07-03 02:15 | PC.NURSE ---
Lab called to report critical troponin value of 4439.8. Dr. Castillo notified of the test results and no new orders at this time.
--- NOTE | 2021-07-03 02:15 | PC.NURSE ---
Dr. Castillo notified of pt's critical troponin value of 4439.8.
--- NOTE | 2021-07-03 04:15 | PC.NURSE ---
Dr Castillo notified of BP 88/56 with no new orders received.
[2021-07-03] MEDS: LEVOTHYROXINE SODIUM 50 MCG TABLET PO (06:19)
[2021-07-03 06:24] LABS: Hematocrit 48.5 % (37.0-46.0); Hemoglobin 16.5 g/dL (12.4-15.3); Immature Granulocyte Absolute 0.04 K/mm3 (0.00-0.00); Immature Granulocyte Percent A 0.7 % (0.0-0.0); Lymphocytes Absolute Auto 0.91 K/mm3 (1.10-4.50); Lymphocytes Percent Auto 15.3 % (18.0-42.0); Mean Corpuscular Hemoglobin 32.1 pg (27.0-31.0); Mean Corpuscular Volume 94.4 fL (78.0-102.0); Monocytes Absolute Auto 0.24 K/mm3 (0.10-0.90); Neutrophils Absolute Auto 4.8 K/mm3 (1.7-7.2); Platelet Count Result 82 K/mm3 (150-420); Red Blood Count 5.14 M/mm3 (4.70-6.10); Red Cell Distribution Width 13.7 % (11.6-14.4)
[2021-07-03 06:40] LABS: Alanine Aminotransferase 73 U/L (16-63); Albumin Level 2.8 g/dL (3.4-5.0); Alkaline Phosphatase 77 U/L (46-116); Anion Gap 11 mmol/L (8-16); Aspartate Amino Transferase 212 U/L (15-37); Bilirubin,Total 1.3 mg/dL (0.00-1.00); Blood Urea Nitrogen 41 mg/dL (7-18); Calcium 8.6 mg/dL (8.5-10.1); Carbon Dioxide 22 mmol/L (21-32); Chloride 97 mmol/L (98-108); Estimated CRCL calculation 24 ml/min; Estimated Glomerular Filt Rate 37; Glucose 83 mg/dL (70-99); NT Pro B Type Natriuretic Pept > 35000 pg/mL (0-450); Osmolality Calculated 279 mOsm/kg (285-295); Potassium 4.7 mmol/L (3.5-5.1); Sodium 130 mmol/L (136-145); Total Protein 6.2 g/dL (6.4-8.2)
[2021-07-03 06:49] LABS: INR 1.5; Prothrombin Time 15.8 Seconds (9.64-11.0)
[2021-07-03 06:50] LABS: Partial Thromboplastin Time 120.1 SEC (23.90-30.70)
[2021-07-03 07:08] LABS: Creatine Kinase 1391 U/L (39-308); Magnesium 2.2 mg/dL (1.8-2.4)
[2021-07-03] MEDS: carvediloL 12.5 MG TABLET BY MOUTH (10:17)
[2021-07-03] MEDS: DEXAMETHASONE 2 MG TABLET 6 MG PO ×2 (10:18→10:20)
[2021-07-03] MEDS: FAMOTIDINE 20 MG TABLET PO (10:19)
[2021-07-03] MEDS: DIGOXIN TAB 125 MCG TABLET PO (10:19)
[2021-07-03] MEDS: SODIUM CHLORIDE 0.9% IV 1,000 ML 999 ML IV CONT ×2 (13:07→22:00)
[2021-07-03] MEDS: FUROSEMIDE INJ 40 MG/4 ML VIAL IV PUSH (14:58)
[2021-07-03 16:06] LABS: Base Excess ABG -5.7 mmol/L (0-2); HCO3 ABG 17.7 mmol/L (23-29); Oxygen Content ABG 20.3 %vol (16.0-22.0); Oxygen Saturation ABG 93.5 % (95-97); PCO2 ABG 29.7 mmHg (35-45); PO2 ABG 70.6 mmHg (75-85); Total Hemoglobin 15.5 g/dL (12.0-18.0); pH ABG 7.39 (7.35-7.45)
[2021-07-03 16:09] LABS: Device NASAL CANNULA; Site Drawn RIGHT BRACHIAL
--- NOTE | 2021-07-03 16:34 | PC.NURSE ---
Patient BP 62/32. Notified
--- NOTE | 2021-07-03 16:35 | PC.NURSE ---
Patient had BP 62/32. Notified MD of results and obtained order for bolus of 1000 L n/s over 1 hr. Bolus administered. BP 70/56. New order for lasix. Lasix administered. Patient T at 100.9. Changed bed and removed extra blankets. Patient denies pain or feeling unwell. Altered mental status persists. Appetite poor. Spoke with patient's daughter r/t condition and daughter states that the family does not want extenuating measures with care, as patient is a DNR and would not want that. MD notified of conversation with family.
[2021-07-03 18:36] LABS: Partial Thromboplastin Time 122.4 SEC (23.90-30.70)
--- NOTE | 2021-07-03 18:38 | PC.NURSE ---
Detention Worker decreased heparin from 5.43/hr to 4.43/hr due to APTT results and per protocol.
--- NOTE | 2021-07-03 20:00 | PC.NURSE ---
Patient is an ER hold on cardiac telemetry, with a Heparin drip going at 4.73 mL/hr. Patient's assessment yielded the following results: Within normal limits in Gastrointestinal; HENT; Integumentary; and Reproductive. Patient has generalized muscle weakness. He had difficulty running his heel up the opposite berkowitz on both sides. He had difficulty pushing with his feet, and pulling with his toes. He was typically laying with his eyes closed, and would sometimes respond to questions, and other times would not. He is reported to have retrograde amnesia. Patient has shortness of breath, and cannot lay flat. He has a cough, and is Covid positive. Patient's telemetry indicated that his heart rate was 105. His GA segment and OT interval was not available. His QRS was 0.08. Patient is currently in Atrial fibrillation. His QRS is inverted in Lead II.
--- NOTE | 2021-07-03 23:38 | ADMGEN ---
This patient, Vazquez Higgins, was admitted to 2nd Floor Room 209-1. Patient/family oriented to hospital policies and general routines including ID bracelet, bed and alarms, pain management, procedures, bathroom and other care routines, personal items, smoking policy, room service/diet, and visiting hours. Information on how to activate the Rapid Response Team has been discussed. Patient/Family are encouraged to report perceived risks to care and to ask questions if they do not understand what they are told or what they should do.
--- NOTE | 2021-07-03 23:43 | PM.IMPN ---
Progress Note: A&P Assessment and Plan (1) Atrial fibrillation with rapid ventricular response: Code(s): I48.91 - Unspecified atrial fibrillation Status: Acute Assessment and Plan: Continue Coreg possibly the lower dose due to his low blood pressure. Continue digoxin and apixaban. (2) COVID-19: Code(s): U07.1 - COVID-19 Status: Acute Assessment and Plan: Patient on Decadron cannot use any other of the COVID medications due to his renal failure. (3) Acute renal failure: Qualifiers: Acute renal failure type: unspecified Qualified Code(s): N17.9 - Acute kidney failure, unspecified Code(s): N17.9 - Acute kidney failure, unspecified Status: Acute Assessment and Plan: Continue to monitor renal function patient given fluids. Will go slow to avoid worsening congestive heart failure. (4) CHF exacerbation: Qualifiers: Qualified Code(s): I50.23 - Acute on chronic systolic (congestive) heart failure Code(s): I50.9 - Heart failure, unspecified Status: Acute Assessment and Plan: Will half to hold his Coreg due to his blood pressure. Give Lasix p.r.n. as needed for worsening heart failure. Time Spent With Patient Time with patient: less than 15 minutes Subjective Date/time seen: 07/03/21 14:43 Patient seen on the floor he has been in here hold due to atrial fibrillation with RVR and positive COVID. Patient is stable he relates that he has been losing weight for quite some time. He is not very hungry and many of his meals show very little consumption. Breakfast tray is still in the room as well as his lunch tray. His telemetry shows that his heart rate is better controlled at this time. He has a history of atrial fibrillation is currently on Coreg for rate control. Said he has been on that for some time. He is also on a blood thinner consisting of apixaban. Exam Const: General: comfortable and no acute distress Eyes: General: appearance normal, both eyes and all related structures Pupils: Equal, round and reactive pupils present EOM: EOMs intact bilaterally Neck: Neck: supple and no JVD Resp: Effort & Inspection: normal respiratory effort Auscultation: clear to auscultation bilaterally Cardio: Rhythm: abnormal rhythm irregularly irregular GI: GI Palp: Yes Soft to palpation and No Tenderness to palpation present (GI) Auscultation: normal bowel sounds Skin: General skin exam: normal color and no rashes or lesions noted Neuro: Cognition (Neuro): normal cognition Speech: normal speech Motor exam (neuro): 5/5 motor strength present throughout and Normal motor muscle tone present throughout Sensory Exam: normal sensation Extrem: General: normal to inspection, normal exam except as noted and edema bilateral (2+) Psych: Appearance: grossly normal Mental Status: mental status grossly normal Speech and movement: Normal speech and movement present Affect: Depressed mood present Attitude: cooperative Thought process: Normal thought process present Objective Data Vital Signs Vital Signs: Vital Signs - 24 hr 07/03/21 00:00 07/03/21 03:04 07/03/21 04:00 Temperature 36.2 C L 36.4 C Pulse Rate 92 79 90 Respiratory Rate 18 18 Blood Pressure 79/51 L 88/56 L Pulse Oximetry 96 100 07/03/21 08:00 07/03/21 10:17 07/03/21 10:19 Temperature 36.8 C Pulse Rate 88 88 88 Respiratory Rate 16 Blood Pressure 72/48 L Pulse Oximetry 99 07/03/21 12:40 07/03/21 14:08 07/03/21 16:10 Temperature 36.6 C 38.2 C H Pulse Rate 98 98 100 Respiratory Rate 16 20 18 Blood Pressure 62/32 L 74/56 L Pulse Oximetry 96 96 98 07/03/21 20:00 Temperature 36.1 C L Pulse Rate 66 Respiratory Rate 18 Blood Pressure 67/41 L Pulse Oximetry 93 Intake/Output Intake/Output: Intake & Output 06/30/21 07/01/21 07/02/21 07/03/21 23:59 23:59 23:59 23:59 Intake Total 500 1200 Output Total 200 Balance 500 1000
[2021-07-04] VITALS (7 sets, daily range): BP systolic 78–86; BP diastolic 38–49; PULSE 74–95; RESP 18–20; TEMP 36.1–36.3; O2SAT 94–96
[2021-07-04 00:08] LABS: Partial Thromboplastin Time 69.5 SEC (23.90-30.70)
[2021-07-04] MEDS: HEPARIN SODIUM 5,000 UNITS/ML VIAL 2000 UNITS IV PUSH (01:01)
[2021-07-04] MEDS: HEPARIN SOD/D5W 100 UNITS/ML 25,000 UNITS/250 ML BAG 5.53 UNITS IV CONT (01:43)
[2021-07-04] MEDS: REMDESIVIR 100 MG/NS 250 ML 100 MG/250 ML BAG 250 MG IVPB (01:46)
[2021-07-04] MEDS: LEVOTHYROXINE SODIUM 50 MCG TABLET PO (06:12)
[2021-07-04 06:27] LABS: INR 1.6; Prothrombin Time 16.5 Seconds (9.50-12.10)
[2021-07-04 06:36] LABS: Alanine Aminotransferase 62 U/L (16-63); Estimated CRCL calculation 24 ml/min; Estimated Glomerular Filt Rate 37
[2021-07-04 07:08] LABS: Basophils Absolute Auto 0.01 K/mm3 (0.00-0.10); Basophils Percent Auto 0.2 % (0.0-1.0); Hematocrit 44.2 % (37.0-46.0); Hemoglobin 15.7 g/dL (12.4-15.3); Immature Granulocyte Absolute 0.03 K/mm3 (0.00-0.00); Immature Granulocyte Percent A 0.6 % (0.0-0.0); Lymphocytes Absolute Auto 0.53 K/mm3 (1.10-4.50); Lymphocytes Percent Auto 10.9 % (18.0-42.0); Mean Corpuscular HGB Conc 35.5 g/dL (32.0-36.0); Mean Corpuscular Hemoglobin 32.9 pg (27.0-31.0); Mean Corpuscular Volume 92.7 fL (78.0-102.0); Mean Platelet Volume 12.1 fl (8.7-11.0); Monocytes Absolute Auto 0.18 K/mm3 (0.10-0.90); Monocytes Percent Auto 3.7 % (2.0-11.0); Neutrophils Absolute Auto 4.1 K/mm3 (1.7-7.2); Neutrophils Percent Auto 84.6 % (50.0-70.0); Platelet Count Result 102 K/mm3 (150-420); Red Blood Count 4.77 M/mm3 (4.70-6.10); Red Cell Distribution Width 13.9 % (11.6-14.4); White Blood Count 4.9 K/mm3 (4.8-10.8)
[2021-07-04 07:16] LABS: Partial Thromboplastin Time 80.6 SEC (23.90-30.70)
[2021-07-04 07:24] LABS: Alanine Aminotransferase 62 U/L (16-63); Albumin Level 2.4 g/dL (3.4-5.0); Alkaline Phosphatase 67 U/L (46-116); Anion Gap 13 mmol/L (8-16); Aspartate Amino Transferase 135 U/L (15-37); Blood Urea Nitrogen 51 mg/dL (7-18); Calcium 7.9 mg/dL (8.5-10.1); Carbon Dioxide 21 mmol/L (21-32); Chloride 99 mmol/L (98-108); Estimated CRCL calculation 24 ml/min; Estimated Glomerular Filt Rate 37; Glucose 148 mg/dL (70-99); NT Pro B Type Natriuretic Pept 25742 pg/mL (0-450); Osmolality Calculated 292 mOsm/kg (285-295); Potassium 4.1 mmol/L (3.5-5.1); Sodium 133 mmol/L (136-145); Total Protein 5.4 g/dL (6.4-8.2)
--- NOTE | 2021-07-04 08:09 | PM.IMHP ---
H&P: HPI History of Present Illness Date/Time: 07/04/21 08:09 Vazquez Higgins is an 80 year old male who is being admitted after being an ER Hold patient while awaiting transfer to a higher level of care facility. [facility] Past Medical History Medical History Atrial fibrillation CAD (coronary artery disease) Disorder of bilirubin metabolism Dysphagia Hypothyroidism Liver lesion Retrograde amnesia Systolic heart failure Thrombocytopenia Tobacco pipe smoker Underweight Surgical History Surgical History History of inguinal hernia repair S/P colonoscopic polypectomy Family History Family History Father Alzheimer disease Mother Unknown family medical history Social History Social History Years smoked: 40 Smoking status: Current every day smoker Tobacco type: pipe Smokeless tobacco user: chewing tobacco Second hand tobacco smoke exposure: Yes Smoking end date: 06/25/19 Alcohol intake: never Alcohol use details: Occasional Substance use: never Substance use type: does not use Gender identity (if verbalized by the patient): Male Spiritual care concerns: No Agree to blood products: Yes Meds Home Medications and Allergies Home Medications Medication Instructions Recorded Confirmed Type apixaban 5 mg tablet 5 mg PO BID #180 tablet 01/07/20 07/02/21 Rx carvedilol 12.5 mg tablet See Rx Instructions .ROUTE 11/27/20 07/02/21 Rx .COMPLEX #180 tablet lisinopril 5 mg tablet See Rx Instructions .ROUTE 11/27/20 07/02/21 Rx .COMPLEX #90 tablet digoxin 125 mcg (0.125 mg) tablet 125 mcg PO DAILY #90 tablet 03/05/21 07/02/21 Rx famotidine 20 mg tablet 20 mg PO DAILY #90 tablet 03/05/21 07/02/21 Rx levothyroxine 50 mcg tablet 50 mcg PO DAILY #90 tablet 03/15/21 07/02/21 Rx Allergies Allergy/AdvReac Type Severity Reaction Status Date / Time Penicillins Allergy Hives Verified 07/02/21 14:20 Vital Signs Vital Signs - 24 hr 07/03/21 10:17 07/03/21 10:19 07/03/21 12:40 Temperature 97.9 F Pulse Rate 88 88 98 Respiratory Rate 16 Blood Pressure 62/32 L Pulse Oximetry 96 07/03/21 14:08 07/03/21 16:10 07/03/21 20:00 Temperature 100.8 F H 96.9 F L Pulse Rate 98 100 66 Respiratory Rate 20 18 18 Blood Pressure 74/56 L 67/41 L Pulse Oximetry 96 98 93 07/03/21 23:00 07/04/21 00:00 07/04/21 01:11 Temperature 96.9 F L 96.9 F L Pulse Rate 74 74 Respiratory Rate 18 18 Blood Pressure 82/38 L 82/38 L Pulse Oximetry 94 94 94 07/04/21 04:00 Temperature 97.3 F L Pulse Rate 85 Respiratory Rate 18 Blood Pressure 82/49 L Pulse Oximetry 94 H&P: Results Labs Labs: Short CBC 07/04/21 Range/Units 06:58 WBC 4.9 (4.8-10.8) K/mm3 Hgb 15.7 H (12.4-15.3) g/dL Hct 44.2 (37.0-46.0) % Plt Count 102 L (150-420) K/mm3 BMP 07/04/21 07/04/21 05:34 06:58 Sodium 133 L Potassium 4.1 Chloride 99 Carbon Dioxide 21 BUN 51 H Creatinine 1.76 H 1.79 H Glucose 148 H Calcium 7.9 L Cardiac Enzymes 07/04/21 Range/Units 06:58 Troponin I 2312.0 H* (0.00-60.4) ng/L Liver Function 07/04/21 07/04/21 Range/Units 05:34 06:58 Total Bilirubin 1.0 (0.00-1.00) mg/dL AST 135 H (15-37) U/L ALT 62 62 (16-63) U/L Alkaline Phosphatase 67 (46-116) U/L Albumin 2.4 L (3.4-5.0) g/dL Assessment and Plan Assessment and plan (1) Atrial fibrillation with rapid ventricular response: Code(s): I48.91 - Unspecified atrial fibrillation Status: Acute Assessment and Plan: Continue Coreg possibly the lower dose due to his low blood pressure. Continue digoxin and apixaban. (2) COVID-19: Code(s): U07.1 - COVID-19 Status: Acute Assessment and Plan: Pa
[2021-07-04] MEDS: FAMOTIDINE 20 MG TABLET PO (09:22)
[2021-07-04] MEDS: DIGOXIN TAB 125 MCG TABLET PO (09:23)
[2021-07-04] MEDS: DEXAMETHASONE 2 MG TABLET 6 MG PO (09:23)
[2021-07-04] MEDS: SODIUM CHLORIDE 0.9% IV 1,000 ML 250 ML IV CONT (09:23)
[2021-07-04 09:50] LABS: Venous Carboxyhemoglobin 0.8 %THb (0-2.0)
--- NOTE | 2021-07-04 11:52 | PM.SD2 ---
Same Day Admit/Disch: HPI History of Present Illness Chief complaint: AMBULANCE <NATALIYA Muñoz - Last Filed: 07/04/21 13:05> Narrative: Vazquez Higgins is a 80 year old male who comes to the hospital after calling EMS because he felt sick with shortness of breath. Pt was an ER Hold for about a day and a half while waiting for acceptance at a higher level of care for ICU. Pt lives at home alone and was found to be using his stove to heat his home. Carboxyhemoglobin was obtained this AM and found to be 0.8. This AM Pt is A&OX2. Pt changed from ER Hold to full admit this AM. He is currently being treated for Severe Hypotension (lowest BP 60s/40s HR WNL), Rhabdomyolysis, Elevated BNP (without peripheral edema or rales, Echo from 08/2019 LVEF 25%), Acute Renal Failure, A fib w/ RVR (rate control 80s-100s), COVID (positive 07/02/2021). Currently Pt denies any chest pain, SOB, abdominal issues, fevers, chills, muscle aches, body aches. he ahs a PMHx to include: Dysphagia, Systolic HF, Thrombocytopenia, Liver lesion, tobacco pipe smoker, Hypothyroidism, CHF Exacerbation. <NATALIYA Muñoz - Last Filed: 07/04/21 13:05> [facility] Past Medical History Medical History: Medical History Atrial fibrillation CAD (coronary artery disease) Disorder of bilirubin metabolism Dysphagia Hypothyroidism Liver lesion Retrograde amnesia Systolic heart failure Thrombocytopenia Tobacco pipe smoker Underweight <NATALIYA Muñoz - Last Filed: 07/04/21 13:05> Surgical History Surgical History: Surgical History History of inguinal hernia repair S/P colonoscopic polypectomy <NATALIYA Muñoz - Last Filed: 07/04/21 13:05> Family History Family History: Family History Father Alzheimer disease Mother Unknown family medical history <NATALIYA Muñoz - Last Filed: 07/04/21 13:05> Social History Social History: Social History Years smoked: 40 Smoking status: Current every day smoker Tobacco type: pipe Smokeless tobacco user: chewing tobacco Second hand tobacco smoke exposure: Yes Smoking end date: 06/25/19 Alcohol intake: never Alcohol use details: Occasional Substance use: never Substance use type: does not use Gender identity (if verbalized by the patient): Male Spiritual care concerns: No Agree to blood products: Yes <NATALIYA Muñoz - Last Filed: 07/04/21 13:05> Same Day Admit/Disch: Med Pre-admit Medications Home Medications: Home Medications Medication Instructions Recorded Confirmed Type apixaban 5 mg tablet 5 mg PO BID #180 tablet 01/07/20 07/02/21 Rx carvedilol 12.5 mg tablet See Rx Instructions .ROUTE 11/27/20 07/02/21 Rx .COMPLEX #180 tablet lisinopril 5 mg tablet See Rx Instructions .ROUTE 11/27/20 07/02/21 Rx .COMPLEX #90 tablet digoxin 125 mcg (0.125 mg) tablet 125 mcg PO DAILY #90 tablet 03/05/21 07/02/21 Rx famotidine 20 mg tablet 20 mg PO DAILY #90 tablet 03/05/21 07/02/21 Rx levothyroxine 50 mcg tablet 50 mcg PO DAILY #90 tablet 03/15/21 07/02/21 Rx <NATALIYA Muñoz - Last Filed: 07/04/21 13:05> Exam Const: General: cooperative, comfortable, no acute distress, well developed, alert, awake and tired appearing <NATALIYA Muñoz - Last Filed: 07/04/21 13:05> Nutritional Appearance: underweight <NATALIYA Muñoz - Last Filed: 07/04/21 13:05> Limitations: other limitations (frail elderly male) <NATALIYA Muñoz - Last Filed: 07/04/21 13:05> HENMT: Head: normal to inspection and normocephalic <NATALIYA Muñoz - Last Filed: 07/04/21 13:05> Ears: hearing grossly normal bilaterally <NATALIYA Muñoz - Last Filed: 07/04/21 13:05> Mouth: Yes dry mucous membran
[2021-07-04 12:25] LABS: Partial Thromboplastin Time 123.6 SEC (23.90-30.70)
[2021-07-04] MEDS: LACTATED RINGERS 1,000 ML 500 ML IV CONT (13:00)
--- NOTE | 2021-07-04 14:00 | PC.NURSE ---
Patient started on Phenylephrine drip, Heparin drip continues. Lactated Ringers infusing at 500mL/hr. [facility] not able to transport patient with Phenylephrine drip without accompanying nurse. Darian Lagos SURVEY ENGINEER to ride with patient for transfer. Lesly at [facility] notified of patients departure. Daughter Ana also notified patient en route to facility.
== END 2021-07-04 13:50 | disposition short-term general hospital (02) | DRG 177 ==
LOC: CHSED 18:07 → CHS2ND 20:08 → CHSED 07-03 23:59 → CHS2ND 07-03 23:59
PROVIDERS: Nurse Practitioner Family; Admitting Provider Emergency Medicine; Emergency Provider Emergency Medicine; PCP Family Medicine; Visit Provider Emergency Medicine
DX: U07.1 COVID-19 (principal); I50.23 Acute on chronic systolic (congestive) heart failure; I48.20 Chronic atrial fibrillation, unspecified; M62.82 Rhabdomyolysis; N17.9 Acute kidney failure, unspecified; R77.8 Other specified abnormalities of plasma proteins
CPT/HCPCS: 36415; 36600; 71045; 80053; 80162; 81001; 82375; 82550; 82565; 82805; 83605; 83735; 83880; 84460; 84484; 85025; 85055; 85610; 85730; 86140; 87040; 87502; 93005; 96361; 96365; 96366; 96375; 99285; A9270; C9803; J1160; J1644; J1940; J2370; J7030; J7040; J7060; J7120; J8540; U0003; U0005